=== PATIENT | male | born 1940 | race Caucasian/White ===

== ENCOUNTER 2016-08-24 16:37 | Emergency (ER) | payer MEDICARE ==
[2016-08-24 17:02] VITALS: BP 126/87
--- NOTE | 2016-08-24 17:40 | UC ---
Laceration HPI - HPI Summary HPI Summary: 76 yo M cut his left lower leg on the corner of a car door approx 3pm. Pt is on ASA and warfarin and is type I DM. - History Of Current Complaint Chief Complaint: UCLowerExtremity Stated Complaint: LEG LAC Time Seen by Provider: 08/24/16 17:34 Hx Obtained From: Patient, Family/Loading Checker - Laceration Location: Calf - left Mechanism Of Injury: Sharp Trauma Onset/Duration: Sudden Onset, Lasting Hours, Still Present Severity: Moderate Pain Intensity: 2 Pain Scale Used: 0-10 Numeric Aggravating Factors: Nothing - Allergies/Home Medications Allergies/Adverse Reactions: Allergies Allergy/AdvReac Type Severity Reaction Status Date / Time Amiodarone Allergy Unknown Verified 08/24/16 17:02 Reaction Details PMH/Surg Hx/FS Hx/Imm Hx Previously Healthy: No Endocrine History: Diabetes - type I on pump Cardiovascular History: Cardiac Disease, Pacemaker/ICD Other History Of: Anticoagulant Therapy - Surgical History Surgical History: Yes Surgery Procedure, Year, and Place: depuytren's fasciitis defibulator-approx 5 yrs ago. cardiatic=bypass. =5 yrs ago. aortic valve placement=may 2015. ICD. 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 - Family History Known Family History: Positive: Cardiac Disease Family History: FHx of CVA - Father - Social History Occupation: Retired Lives: With Family Alcohol Use: Daily Alcohol Amount: 1/2 GLASS WINE Substance Use Type: None Smoking Status (MU): Former Smoker When Did the Patient Quit Smoking/Using Tobacco: 45 YRS AGO Review of Systems Constitutional: Negative Skin: Other - laceration Eyes: Negative ENT: Negative Respiratory: Negative Cardiovascular: Negative Gastrointestinal: Negative Genitourinary: Negative Motor: Negative Neurovascular: Negative Musculoskeletal: Negative Neurological: Negative Psychological: Negative All Other Systems Reviewed And Are Negative: Yes Physical Exam Triage Information Reviewed: Yes Appearance: Well-Appearing, Well-Nourished, Pain Distress Vital Signs: Initial Vital Signs Temp 99 F 08/24/16 16:50 Pulse 98 08/24/16 16:50 Resp 22 08/24/16 16:50 BP 126/87 08/24/16 16:50 Pulse Ox 99 08/24/16 16:50 Vital Signs Reviewed: Yes ENT: Positive: Normal ENT inspection Neck: Positive: Supple Respiratory: Positive: No respiratory distress Cardiovascular: Positive: RRR, Pulses Normal, Brisk Capillary Refill Musculoskeletal: Positive: Strength Intact, ROM Intact Neurological: Positive: Alert, Muscle Tone Normal Psychological Exam: Normal Skin: Positive: Other - flap laceration to left lat lower leg, 3cm Laceration Repair - Laceration Repair 1 Description: Linear - flap Laceration Size After Repair: Length (cm) - 3, Width (mm) - 2, Depth (mm) - 2 Modified For Repair: No Type Injection: Local Anesthesia Used: 2.0% Lido Cleansing Completed Via Routine Prep: Yes Irrigation With Pressure Irrigation Device: Yes Closure Material: Sutures - 12 Closure Method: Single Layer Suture Of: Skin Suture Type: Nylon - 4-0 Laceration Course/Dx - Differential Dx - Laceration/Wound Differental Diagnoses: Laceration, Tendon Laceration Provider Diagnoses: flap laceration left lower leg. type I DM Discharge - Discharge Plan Condition: Stable Disposition: HOME Prescriptions: Cephalexin CAP* [Keflex 500 CAP*] 500 mg PO QID #40 cap Patient Education Materials: Care For Your Stitches (ED), Laceration (ED) Referrals: Liana Loza MD [Primary Care Provider] - Additional Instructions: Change the bandage daily. Use a telfa bandage and a small amount of antibiotic ointment. Keep the leg elevated and dry. You may shower, though, and wash with soap and water. No need for stronger cleansing agents. Watch for infection and seek medical attention if you have any concern about the wound. Wear an jane bandage over the dressing for two days, even at night, to act as a pressure dressing. Have your stitches removed in 10-14 days. Return to urgent care if any new or worsening symptoms.
[2016-08-24] MEDS ORDERED: Lidocaine 2% PF * 5 ML VIAL INJ ONE ×2 (17:44→18:04)
== END 2016-08-24 19:00 | disposition home or self-care (01) ==
LOC: UCCORT 16:37
DX: S81.812A Laceration without foreign body, left lower leg, initial encounter (principal); W22.8XXA Striking against or struck by other objects, initial encounter; Y92.9 Unspecified place or not applicable; E10.9 Type 1 diabetes mellitus without complications; Z79.82 Long term (current) use of aspirin; Z79.02 Long term (current) use of antithrombotics/antiplatelets; Z87.891 Personal history of nicotine dependence
CPT/HCPCS: 12002; 99212; G0463

== ENCOUNTER 2016-09-08 09:08 | Emergency (ER) | payer MEDICARE ==
[2016-09-08 09:33] VITALS: BP 101/63
--- NOTE | 2016-09-08 09:50 | UC ---
HPI Wound/Suture Re-check - HPI Summary HPI Summary: suture removal left lower leg laceration here for suture removal . sutures were placed here at the urgent care 15 days ago has no complaint , the wound is healing well . no pain, no redness, no discharge - History Of Current Complaint Chief Complaint: UCSkin Stated Complaint: SUTURE REMOVAL Time Seen by Provider: 09/08/16 09:28 Hx Obtained From: Patient Onset/Duration: Sudden Onset, Lasting Days - 15, Still Present Severity: Moderate - Allergies/Home Medications Allergies/Adverse Reactions: Allergies Allergy/AdvReac Type Severity Reaction Status Date / Time Amiodarone Allergy Unknown Verified 09/08/16 09:26 Reaction Details PMH/Surg Hx/FS Hx/Imm Hx Previously Healthy: Yes Endocrine History: Diabetes Cardiovascular History: Cardiac Disease, Myocardial Infarction Other History Of: Anticoagulant Therapy - Surgical History Surgical History: Yes Surgery Procedure, Year, and Place: depuytren's fasciitis defibulator-approx 5 yrs ago. cardiatic=bypass. =5 yrs ago. aortic valve placement=may 2015. ICD. PACE [employer] - Family History Known Family History: Positive: Cardiac Disease, Hypertension, Diabetes Family History: FHx of CVA - Father - Social History Alcohol Use: Daily Alcohol Amount: 1/2 GLASS WINE Substance Use Type: None Smoking Status (MU): Former Smoker When Did the Patient Quit Smoking/Using Tobacco: 45 YRS AGO - Immunization History Most Recent Tetanus Shot: UNKNOWN Review of Systems Constitutional: Negative Skin: Negative Eyes: Negative ENT: Negative Respiratory: Negative All Other Systems Reviewed And Are Negative: Yes Physical Exam Triage Information Reviewed: Yes Appearance: Well-Appearing, No Pain Distress, Well-Nourished Vital Signs: Initial Vital Signs Temp 98.2 F 09/08/16 09:27 Pulse 87 09/08/16 09:27 Resp 18 09/08/16 09:27 BP 101/63 09/08/16 09:27 Pulse Ox 99 09/08/16 09:27 Vital Signs Reviewed: Yes Eyes: Positive: Conjunctiva Clear ENT: Positive: Normal ENT inspection, Hearing grossly normal, Pharynx normal Neck: Positive: Supple, Nontender, No Lymphadenopathy Respiratory: Positive: Chest non-tender, Lungs clear, Normal breath sounds Cardiovascular: Positive: RRR, No Murmur, Pulses Normal Skin: Positive: Other - + 2 cm laceratio left britton area, suture are intact x 8 , laceration is healing well, + granulation tissue, no discharge, mild erythema , mild swelling and tenderness sutures were removed, steri stips were placed Course/Dx - Differential Dx - Laceration/Wound Provider Diagnoses: suture removal left lower ext. Discharge - Discharge Plan Condition: Stable Disposition: HOME Patient Education Materials: Stitches Removal (ED) Referrals: Liana Loza MD [Primary Care Provider] - If Needed
== END 2016-09-08 09:53 | disposition home or self-care (01) ==
LOC: UCCORT 09:08
DX: Z48.02 Encounter for removal of sutures (principal)

== ENCOUNTER 2017-02-03 14:46 | Emergency (ER) | payer MEDICARE ==
--- NOTE | 2017-02-03 14:55 | UC ---
UC General HPI - HPI Summary HPI Summary: Pt presents with his presenting with blood in his stool, first noticed today. He tells me that 10 days ago he underwent a routine colonoscopy. The follow 4 days he was constipated with hardly any BM. He then took miralax for 2 days and had a significant bowel movement on 02/01. He presents today because this morning he had a loose bowel movement with blood in his stool. Since his first BM today, he has had 3 more BMs - all with darkened stool and nikki red blood. He has brought a sample of his most recent BM - which is loosely formed - there is obvious blood and a darkness to his stools. He is also complaining of some lightheadedness. He is on Lovenox, for an unknown condition, for the last 3 weeks. He is also on Coumadin, which he began last night for the first time since his colonoscopy. He denies fever, chills, SOB, chest pain, abdominal pain, N/V, or recent illness. His manual blood pressure taken today was 90/40 left arm. - History of Current Complaint Chief Complaint: UCGI Stated Complaint: PERSONAL Time Seen by Provider: 02/03/17 14:52 Hx Obtained From: Patient Onset/Duration: Sudden Onset Onset Severity: Mild Current Severity: Mild Associated Signs & Symptoms: Positive: Anticoagulation Therapy, Dizziness - Allergy/Home Medications Allergies/Adverse Reactions: Allergies Allergy/AdvReac Type Severity Reaction Status Date / Time Amiodarone Allergy Unknown Verified 09/08/16 09:26 Reaction Details Home Medications: Home Medications Enoxaparin Sodium [Lovenox] 80 mg SC 02/03/17 [History] Ursodiol 500 mg PO BID 02/03/17 [History Confirmed 02/03/17] PMH/Surg Hx/FS Hx/Imm Hx Endocrine History: Dyslipidemia Cardiovascular History: Cardiac Disease, Hypertension, Pacemaker/ICD, Congestive Heart Failure Other History Of: Anticoagulant Therapy - Surgical History Surgical History: Yes Surgery Procedure, Year, and Place: depuytren's fasciitis defibulator-approx 5 yrs ago. cardiatic=bypass. =5 yrs ago. aortic valve placement=may 2015. ICD. [employer] - Family History Known Family History: Positive: Cardiac Disease, Hypertension, Diabetes Family History: FHx of CVA - Father - Social History Alcohol Use: Daily Alcohol Amount: 1/2 GLASS WINE Substance Use Type: None Smoking Status (MU): Former Smoker When Did the Patient Quit Smoking/Using Tobacco: 45 YRS AGO - Immunization History Most Recent Tetanus Shot: UNKNOWN Review of Systems Constitutional: Negative Skin: Negative Eyes: Negative ENT: Negative Respiratory: Negative Cardiovascular: Negative Gastrointestinal: Other - Blood in stool Genitourinary: Negative Motor: Negative Neurovascular: Negative Musculoskeletal: Negative Neurological: Other - Lightheadedness Psychological: Negative All Other Systems Reviewed And Are Negative: Yes Physical Exam Triage Information Reviewed: Yes Appearance: Well-Appearing, Well-Nourished Vital Signs Reviewed: Yes Eyes: Positive: Conjunctiva Clear Neck: Positive: Supple, Nontender, No Lymphadenopathy Respiratory: Positive: Chest non-tender, Lungs clear, Normal breath sounds, No respiratory distress, No accessory muscle use Cardiovascular: Positive: RRR, Pulses Normal, Brisk Capillary Refill Abdomen Description: Positive: Soft, Other: - TTP periumbilical. Negative: Bruit, CVA Tenderness (R), CVA Tenderness (L), Distended, Guarding, Peritoneal Signs Bowel Sounds: Positive: Present Musculoskeletal: Positive: Strength Intact, ROM Intact, No Edema Neurological: Positive: Alert Psychological: Positive: Age Appropriate Behavior Skin: Positive: Other - No bruising. No johnson brannon sign. Negative: rashes Course/Dx - Course Course Of Treatment: Pt was advised to seek evaluation in the ED. It was strongly recommended that he take an ambulance. Risks were discussed including but not limited to LOC, cardiac abnormalities, increased bleeding, and . Pt and his declined ambulance and wanted to go by personal vehicle. His is driving. - Differential Dx - Multi-Symptom Differential Diagnoses: Other - GI bleed Provider Diagnoses: GI bleed lower. Hypotension. Lightheadedness. Aortic valve replacement Discharge - Discharge Plan Condition: Stable Disposition: HOME Referrals: Liana Loza MD [Primary Care Provider] - Additional Instructions: Pt advised to go to the ED for further evaluation. They tell me that his will drive him by personal vehicle, as they declined ambulance.
[2017-02-03 15:10] VITALS: BP 90/50
== END 2017-02-03 15:39 | disposition home or self-care (01) ==
LOC: UCEAST 14:46
DX: K92.2 Gastrointestinal hemorrhage, unspecified (principal); I95.9 Hypotension, unspecified; R42 Dizziness and giddiness; Z95.2 Presence of prosthetic heart valve; Z79.01 Long term (current) use of anticoagulants; I50.9 Heart failure, unspecified; Z95.810 Presence of automatic (implantable) cardiac defibrillator; Z72.89 Other problems related to lifestyle; Z87.891 Personal history of nicotine dependence
CPT/HCPCS: 99212; G0463

== ENCOUNTER 2017-09-24 12:28 | Inpatient (IN) | payer MEDICARE ==
--- OUTSIDE RECORDS SUMMARY | 2017-09-24 13:16 | XMS REPORT ---
:1940 External Reference #:[id number] Author Organization [facility] Address [address] [place] [address] [place] [address] Phone [phone] Care Team Providers Name Role Phone Barry Snowden MD Care Team Information Alarm Investigator Unavailable Liana Loza MD Primary Care Physician Unavailable Payers Type Date Identification Numbers Payment Provider Subscriber Medicare Primary Policy Number: [id number] Medicare Alan Hollis PayID: [id number] [address] [place] [address] [facility] Part [facility] Policy Number: [id number] [facility] Alan Hollis PayID: [id number] [address] [place] [address] Problems Date Description Provider Status Onset: 01/17/2013 Primary cardiomyopathy Steven Frye M.D. Active Onset: 01/17/2013 Paroxysmal ventricular tachycardia Steven Frye M.D. Active Onset: 01/17/2013 Chronic ischemic heart disease Steven Frye M.D. 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 Active Onset: 09/18/2016 Dizziness and giddiness Ron Messer M.D. Active Family History Date Family Member(s) Problem(s) Comments Father Stroke Father due to Stroke () Mother Heart Disease Mother due to [place] () Siblings 1 Brother w/celiac disease Social History Type Date Description Comments Marital Status Lives With Occupation Retired Cigarette Use Former Cigarette Smoker Cigarette Use Former Cigarette Smoker 3 smoked 2-3 PPD starting at [employer] age 13 and quit in the s. Cigars Never Smoked Cigars Pipe Never Smoked A Pipe Smokeless Tobacco Never Used Smokeless Tobacco ETOH Use Wine 1/2 glass per day Smoking Patient is a former smoker Recreational Drug Use Denies Drug Use Daily Caffeine consumes chocolate occasionally Daily Caffeine Coffee ocassionally Exercise Type/Frequency Exercises sporadically reg daily ROM Allergies, Adverse Reactions, Alerts Date Description Reaction Status Severity Comments 06/01/2015 Amiodarone "caused scarring on lungs" active 01/17/2013 NKDA inactive Medications Medication Date Status Form Strength Qnty SIG Indications Ordering Provider Magnesium Oxide 08/20/ Active Tablets 400mg 2 by mouth Steven Cao 2017 every day Meek Frye Torsemide 05/12/ Active Tablets 20mg 60tab 1 tab by I50.43 Steven Cao 2016 s mouth every Brand, other day ( M.DDesmond started taking recent since discharge 06/26/17) Coreg 03/15/ Active Tablets 3.125mg 180ta 1 by mouth Steven Cao 2015 bs bid(on hold Brand, per Ke) Meek Amoxicillin 08/02/ Active Capsules 500mg 8caps 4 tablets 1 Steven Cao 2015 hour before Brand, dental work Meek Humalog 10/16/ Active Solution 100Unit/M insulin Steven Cao 2014 Cartridge L pump Meek Frye Lipitor 12/21/ Active Tablets 40mg 90tab 1 tab by Steven Cao 2011 s mouth every Brand, day(on M.D. hold) Klor-Con M20 00// Active Tablets ER 20Meq 90tab 1 by mouth Steven Cao 0000 s every Brand, day(on M.D. hold) Aspirin 00/ Active Tablets DR 81mg 30tab 1 po qd Unknown 0000 s dinner (on hold) Co Q-10 With 00// Active 1 po qd Unknown Red Rice Yeast 0000 dinner(on hold) Flax Seed 00/ Active Capsules 1200mg 1 po qd Unknown 0000 dinner (on hold) Centrum Silver 00/ Active Tablets 30tab 1 po qd(on Unknown 0000 s hold) B-100 Complex 00/00/ Active Tablets 1 po qd Unknown 0000 dinner (on hold) Lisinopril / Active Tablets 2.5mg 1 by mouth Unknown 0000 every day Am ( taken since 06/26/17 [facility] ) Gabapentin / Active Capsules 100mg take 1 by Unknown 0000 mouth daily Am ( taken since 06/26/17 [facility]) Ferrousul / Active Tablets 325(65Fe) 1 tablet po Unknown 0000 mg tid ( taken since 06/26/17 discharge [facility]) Protonix / Active Tablets DR 40mg 1 by mouth Unknown 0000 every day Am ( Taken since 06/26/17 [facility]) Colace / Active Capsules 100mg 1 tab by Unknown 0000 mouth two times a day ( taken as needed since 06/26/17 [facility]) Trazodone HCL / Active Tablets 50mg 1 tablet at Unknown 0000 bedtime ( taken since 06/26/17 [facility]) Melatonin ER / Active Tablets ER 3mg 1 tablet at Unknown 0000 night 1 to 2 hours before bedtime as needed ( taken since 06/26/17 [facility]) Tylenol / Active Capsules 325mg 2 tablets Unknown 0000 every 4 hours as needed for pain ( taken since 06/26/17 [facility] ) Furosemide 02/27/ Hx Tablets 20mg 60tab 2 tabs per Steven Cao 2015 - s day Brand, 05/12/ M.D. 2016 Magnesium 07/15/ Hx Tablets 200mg 1 by mouth Unknown Citrate 2015 - once a day 08/19/ [employer]fe[employer] 2017 Amiodarone HCL 01/07/ Hx Tablets 200mg 45tab 1/2 tab by Steven Cao 2012 - s mouth every Brand, M.DDesmond 2015 Carvedilol 11/05/ Hx Tablets 6.25mg 180ta 1 by mouth Steven Cao 2013 - bs twice a day Brand, 01/15/ M.D. 2015 Pradaxa 09/30/ Hx Capsules 150mg 180ca 1 cap by Steven Cao 2012 - ps mouth twice Brand, 01/28/ a day M.D. 2013 Lisinopril 05/14/ Hx Tablets 5mg 90tab 1 tab by Steven Cao 2012 - s mouth every Brand, 04/10/ day M.D. 2016 Humalog Kwikpen // Hx Solution 100Unit/M 6unit sliding Unknown 0000 - L s scale 2014 Levemir Flexpen / Hx Solution 100Unit/M 30uni 12 units in Unknown 0000 - L ts am 16 units 10/15/ in evening 2014 Novolog / Hx as directed Unknown 0000 - 2015 Carvedilol / Hx Tablets 3.125mg 180ta 1 by mouth Steven Cao 0000 - bs twice a day Brand, (pt is no M.DDesmond 2015 longer taking) Clopidogrel / Hx Tablets 75mg 1 by mouth Unknown Bisulfate 0000 - every day 2015 Pantoprazole / Hx Tablets DR 40mg 1 by mouth Unknown Sodium 0000 - every day 06/17/ for 30 days 2015 Warfarin Sodium / Hx Tablets 2.5mg 2.5mg 4X [place] 0000 - week and , 08/19/ 5mg Liana 2017 (2-2.5mg) MD Donnie 3x a week (monitored Via Coumadin lab [facility]) Polyethylene / Hx Powder 3350NF 1 scoop in [place] Glycol 3350 0000 - 8 oz water , 05/15/ once daily Liana 2016 MD Donnie Enoxaparin / Hx Solution 100mg/ml 1 injection Unknown Sodium 0000 - every 12 05/10/ hours ( 2016 started 05/03/16) Hydrocodone-Romeo / Hx Tablets 5-325mg [place] taminophen 0000 - , 05/10/ Liana 2016 MD Donnie Dutasteride / Hx Capsules 0.5mg 1 cap po Unknown 0000 - daily 2016 Tamsulosin HCL / Hx Capsules 0.4mg 1 cap po Unknown 0000 - daily 2017 Docusate Sodium 00/00/ Hx 1 po bid, Unknown 0000 - not sure 05/10/ dose 2016 Acetaminophen / Hx Tablets 325mg 1-2 tabs 3x Unknown 0000 - a day as 2016 Cephalexin / Hx Capsules 500mg 1 by mouth Unknown 0000 - three times a day for 7 2016 days Ursodiol / Hx Tablets 500mg Take One Unknown 0000 - Tablet By 08/19/ Mouth Twice 2017 A Day Medications Administered in Office Medication Date Status Form Strength Qnty SIG Indications Ordering Provider Inj, Administered Injection Steven Cao Regadenoson, 015 Meek Frye 0.1 MG Technetium TC Administered Injection Steven Cao 99M 015 Meek Frye Tetrofosmin, Per Unit Dose Up To 40 Millicuries Vital Signs Date Vital Result Comment 08/29/2017 Height 72 inches 6'0" Weight 185.00 lb with 6 lbs Lvad controller ( w/o clothes 174lbs) Heart Rate 83 /min BP Systolic Sitting 72 mmHg heard by doopler R O2 % BldC Oximetry 97 % at room air BMI (Body Mass Index) 25.1 kg/m2 11/24/2016 Height 72 inches 6'0" Weight 188.00 lb with shoes Heart Rate 80 /min BP Systolic Sitting 90 mmHg Lue reg cuff BP Diastolic Sitting 60 mmHg Lue reg cuff BP Systolic Standing 92 mmHg Lue reg cuff BP Diastolic Standing 64 mmHg Lue reg cuff Respiratory Rate 17 /min BMI (Body Mass Index) 25.5 kg/m2 Ejection Fraction <20% date 10/10/16 ECHO 11/21/2016 Height 72 inches 6'0" Weight 189.00 lb w/ shoes Heart Rate 72 /min Reg BP Systolic Sitting 100 mmHg Rue, reg cuff BP Diastolic Sitting 70 mmHg Rue, reg cuff Respiratory Rate 16 /min O2 % BldC Oximetry 96 % on Ra BMI (Body Mass Index) 25.6 kg/m2 10/17/2016 Height 72 inches 6'0" Weight 197.00 lb Heart Rate 72 /min BP Systolic Sitting 104 mmHg BP Diastolic Sitting 64 mmHg Respiratory Rate 14 /min O2 % BldC Oximetry 98 % BMI (Body Mass Index) 26.7 kg/m2 10/11/2016 Height 72 inches 6'0" Weight 195.00 lb with shoes Heart Rate 96 /min BP Systolic Sitting 90 mmHg Lue reg cuff BP Diastolic Sitting 70 mmHg Lue reg cuff BP Systolic Standing 108 mmHg Lue reg cuff BP Diastolic Standing 70 mmHg Lue reg cuff Respiratory Rate 17 /min BMI (Body Mass Index) 26.4 kg/m2 Ejection Fraction <20% date 10/10/16 ECHO 10/03/2016 Height 72 inches 6'0" Weight 198.00 lb w/ shoes Heart Rate 78 /min reg BP Systolic Sitting 100 mmHg Rue, reg cuff BP Diastolic Sitting 64 mmHg Rue, reg cuff Respiratory Rate 16 /min O2 % BldC Oximetry 98 % on Ra BMI (Body Mass Index) 26.9 kg/m2 09/18/2016 Height 72 inches 6'0" Weight 194.00 lb Heart Rate 96 /min BP Systolic Sitting 112 mmHg BP Diastolic Sitting 66 mmHg Respiratory Rate 20 /min Pain Level 0 BMI (Body Mass Index) 26.3 kg/m2 07/12/2016 Height 72 inches 6'0" Weight 184.00 lb with shoes Heart Rate 84 /min BP Systolic Sitting 108 mmHg Rue reg cuff BP Diastolic Sitting 58 mmHg Rue reg cuff BP Systolic Standing 104 mmHg Rue reg cuff BP Diastolic Standing 54 mmHg Rue reg cuff Respiratory Rate 17 /min BMI (Body Mass Index) 25.0 kg/m2 Ejection Fraction <20% 06/21/2016-echo 06/16/2016 Height 72 inches 6'0" Weight 192.00 lb with shoes Heart Rate 88 /min Ap BP Systolic Sitting 96 mmHg Lue reg cuff BP Diastolic Sitting 70 mmHg Lue reg cuff BP Systolic Standing 100 mmHg Lue reg cuff BP Diastolic Standing 66 mmHg Lue reg cuff Respiratory Rate 17 /min BMI (Body Mass Index) 26.0 kg/m2 Ejection Fraction >20% date 06/05/16 ECHO 06/15/2016 Weight 186.00 lb patient scale this morning Heart Rate 70 /min varying, see note BP Systolic Sitting 128 mmHg Rue reg cuff BP Diastolic Sitting 66 mmHg Rue reg cuff BP Systolic Standing 118 mmHg Rue reg cuff BP Diastolic Standing 76 mmHg Rue reg cuff O2 % BldC Oximetry 95 % 06/07/2016 Height 72 inches 6'0" Weight 191.00 lb no shoes Heart Rate 62 /min BP Systolic Sitting 112 mmHg Rue reg cuff BP Diastolic Sitting 64 mmHg Rue reg cuff BP Systolic Standing 110 mmHg Rue reg cuff BP Diastolic Standing 62 mmHg Rue reg cuff Respiratory Rate 18 /min BMI (Body Mass Index) 25.9 kg/m2 Ejection Fraction <20% 04/24/2016-echo 05/16/2016 Height 72 inches 6'0" Weight 196.75 lb no shoes Heart Rate 70 /min apical BP Systolic Sitting 110 mmHg Rue reg cuff BP Diastolic Sitting 68 mmHg Rue reg cuff BP Systolic Standing 100 mmHg Rue reg cuff BP Diastolic Standing 64 mmHg Rue reg cuff Respiratory Rate 16 /min BMI (Body Mass Index) 26.7 kg/m2 05/12/2016 Height 72 inches 6'0" Weight 202.00 lb Heart Rate 72 /min BP Systolic Sitting 102 mmHg Rue reg cuff BP Diastolic Sitting 64 mmHg Rue reg cuff BP Systolic Standing 98 mmHg Rue BP Diastolic Standing 70 mmHg Rue Respiratory Rate 16 /min BMI (Body Mass Index) 27.4 kg/m2 Ejection Fraction 21% 04/24/16 05/05/2016 Height 72 inches 6'0" Weight 202.00 lb with shoes Heart Rate 82 /min BP Systolic Sitting 104 mmHg Rue reg cuff BP Diastolic Sitting 72 mmHg Rue reg cuff BP Systolic Standing 102 mmHg Rue reg cuff BP Diastolic Standing 70 mmHg Rue reg cuff BMI (Body Mass Index) 27.4 kg/m2 04/14/2016 Height 72 inches 6'0" Weight 197.00 lb w/o shoes Heart Rate 76 /min BP Systolic Sitting 96 mmHg Lue, reg cuff BP Diastolic Sitting 74 mmHg Lue, reg cuff BP Systolic Standing 94 mmHg Lue BP Diastolic Standing 78 mmHg Lue Body Temperature 96.8 F tympanic O2 % BldC Oximetry 97 % on Ra BMI (Body Mass Index) 26.7 kg/m2 Ejection Fraction < 20% as of 03/06/16 echo 03/31/2016 Height 72 inches 6'0" Weight 195.00 lb Heart Rate 88 /min BP Systolic Sitting 110 mmHg BP Diastolic Sitting 70 mmHg BMI (Body Mass Index) 26.4 kg/m2 03/22/2016 Height 72 inches 6'0" Weight 195.00 lb no shoes Heart Rate 88 /min BP Systolic Sitting 102 mmHg Lue reg cuff BP Diastolic Sitting 56 mmHg Lue reg cuff BP Systolic Standing 100 mmHg Lue reg cuff BP Diastolic Standing 54 mmHg Lue reg cuff Respiratory Rate 17 /min BMI (Body Mass Index) 26.4 kg/m2 Ejection Fraction <20% 03/06/2016 03/03/2016 Height 72 inches 6'0" Weight 197.00 lb w/o shoes Heart Rate 92 /min BP Systolic Sitting 116 mmHg Lue, reg cuff BP Diastolic Sitting 56 mmHg Lue, reg cuff BP Systolic Standing 106 mmHg Lue BP Diastolic Standing 54 mmHg Lue Respiratory Rate 16 /min O2 % BldC Oximetry 98 % on Ra BMI (Body Mass Index) 26.7 kg/m2 Ejection Fraction 20-25% as of 10/01/15 echo 11/05/2015 Height 72 inches 6'0" Weight 188.00 lb per pt Heart Rate 73 /min BP Systolic Sitting 110 mmHg BP Diastolic Sitting 60 mmHg Respiratory Rate 14 /min O2 % BldC Oximetry 97 % BMI (Body Mass Index) 25.5 kg/m2 10/08/2015 Height 72 inches 6'0" Weight 191.00 lb with shoes Heart Rate 82 /min BP Systolic Sitting 110 mmHg LA lrg cuff BP Diastolic Sitting 74 mmHg LA lrg cuff BP Systolic Standing 110 mmHg LA lrg cuff BP Diastolic Standing 68 mmHg LA lrg cuff BMI (Body Mass Index) 25.9 kg/m2 Ejection Fraction 20% - 25% echo 10/01/15 08/31/2015 Height 72 inches 6'0" Weight 194.00 lb Heart Rate 77 /min BP Systolic 110 mmHg BP Diastolic 64 mmHg Respiratory Rate 14 /min O2 % BldC Oximetry 99 % BMI (Body Mass Index) 26.3 kg/m2 07/19/2015 Height 72 inches 6'0" Weight 194.00 lb Heart Rate 75 /min BP Systolic Sitting 110 mmHg BP Diastolic Sitting 60 mmHg Respiratory Rate 16 /min O2 % BldC Oximetry 98 % BMI (Body Mass Index) 26.3 kg/m2 07/02/2015 Height 72 inches 6'0" Weight 194.00 lb Heart Rate 76 /min BP Systolic Sitting 108 mmHg LA reg cuff BP Diastolic Sitting 64 mmHg LA reg cuff BP Systolic Standing 100 mmHg LA BP Diastolic Standing 58 mmHg LA Respiratory Rate 16 /min BMI (Body Mass Index) 26.3 kg/m2 Ejection Fraction <20% 06/29/15 06/01/2015 Height 72 inches 6'0" Weight 201.00 lb w/ sneakers Heart Rate 76 /min reg BP Systolic Sitting 116 mmHg Rue, reg cuff BP Diastolic Sitting 56 mmHg Rue, reg cuff BP Systolic Standing 110 mmHg Rue BP Diastolic Standing 60 mmHg Rue Respiratory Rate 16 /min BMI (Body Mass Index) 27.3 kg/m2 Ejection Fraction 16% As of 05/07/15 echo 04/20/2015 Height 72 inches 6'0" Weight 199.00 lb with shoes Heart Rate 70 /min BP Systolic Sitting 108 mmHg left arm, reg cuff BP Diastolic Sitting 62 mmHg left arm, reg cuff BP Systolic Standing 98 mmHg left arm, reg cuff BP Diastolic Standing 62 mmHg left arm, reg cuff Respiratory Rate 16 /min BMI (Body Mass Index) 27.0 kg/m2 Ejection Fraction 20-25% 03/25/15 04/08/2015 Height 72 inches 6'0" Weight 200.00 lb w/o shoes Heart Rate 80 /min reg BP Systolic Sitting 108 mmHg Rue, reg cuff BP Diastolic Sitting 66 mmHg Rue, reg cuff BP Systolic Standing 106 mmHg Rue BP Diastolic Standing 70 mmHg Rue Respiratory Rate 16 /min BMI (Body Mass Index) 27.1 kg/m2 Ejection Fraction 20-25% as of 03/25/15 echo 03/05/2015 Height 72 inches 6'0" Weight 203.00 lb without shoes Heart Rate 74 /min BP Systolic Sitting 108 mmHg reg cuff, L arm BP Diastolic Sitting 60 mmHg reg cuff, L arm BP Systolic Standing 114 mmHg BP Diastolic Standing 70 mmHg Respiratory Rate 18 /min BMI (Body Mass Index) 27.5 kg/m2 Ejection Fraction 25-30% 10/29/14 10/16/2014 Height 72 inches 6'0" Weight 192.00 lb with shoes Heart Rate 68 /min BP Systolic Sitting 98 mmHg Ra, reg cuff BP Diastolic Sitting 64 mmHg Ra, reg cuff BP Systolic Standing 94 mmHg Ra BP Diastolic Standing 64 mmHg Ra Respiratory Rate 14 /min BMI (Body Mass Index) 26.0 kg/m2 Ejection Fraction 30-35% 10/25/2011 01/30/2014 Height 72 inches 6'0" Weight 203.00 lb with shoes Heart Rate 66 /min regular BP Systolic Sitting 118 mmHg left arm reg cuff BP Diastolic Sitting 64 mmHg left arm reg cuff BP Systolic Standing 108 mmHg left arm reg cuff BP Diastolic Standing 62 mmHg left arm reg cuff Respiratory Rate 18 /min BMI (Body Mass Index) 27.5 kg/m2 01/17/2013 Height 72 inches 6'0" Weight 196.00 lb Heart Rate 68 /min BP Systolic Sitting 104 mmHg Ra reg cuff BP Diastolic Sitting 68 mmHg Ra reg cuff BP Systolic Standing 98 mmHg Ra BP Diastolic Standing 60 mmHg Ra Respiratory Rate 16 /min BMI (Body Mass Index) 26.6 kg/m2 Results Test Date Test Result H/L Range Note Inr/Protime 06/13/2016 Inr 2.45 High 0.89-1.11 Basic Metabolic Panel 03/31/2016 Sodium 134 mmol/L 133-145 Potassium 5.5 mmol/L High 3.5-5.0 Chloride 98 mmol/L Low 101-111 Co2 Carbon Dioxide 30 mmol/L 22-32 Anion Gap 6 mmol/L 2-11 Glucose 168 mg/dL High 70-100 Blood Urea Nitrogen 32 mg/dL High 6-24 Creatinine 1.20 mg/dL High 0.67-1.17 BUN/Creatinine Ratio 26.7 High 8-20 Calcium 9.4 mg/dL 8.6-10.3 Egfr Non- 59.0 >60 Egfr 75.9 >60 1 CBC Auto Diff 03/01/2016 White Blood Count 6.6 10^3/uL 3.5-10.8 Red Blood Count 5.11 10^6/uL 4.0-5.4 Hemoglobin 15.4 g/dL 14.0-18.0 Hematocrit 48 % 42-52 Mean Corpuscular Volume 94 fL 80-94 Mean Corpuscular Hemoglobin 30 pg 27-31 Mean Corpuscular HGB Conc 32 g/dL 31-36 Red Cell Distribution Width 15 % 10.5-15 Platelet Count 124 10^3/uL Low 150-450 Mean Platelet Volume 9 um3 7.4-10.4 Abs Neutrophils 4.1 10^3/uL 1.5-7.7 Abs Lymphocytes 1.5 10^3/uL 1.0-4.8 Abs Monocytes 0.7 10^3/uL 0-0.8 Abs Eosinophils 0.3 10^3/uL 0-0.6 Abs Basophils 0.1 10^3/uL 0-0.2 Abs Nucleated RBC 0.01 10^3/uL Granulocyte % 61.9 % 38-83 Lymphocyte % 22.1 % Low 25-47 Monocyte % 10.2 % High 1-9 Eosinophil % 4.5 % 0-6 Basophil % 1.3 % 0-2 Nucleated Red Blood Cells % 0.1 Basic Metabolic Panel 03/01/2016 Sodium 136 mmol/L 133-145 Potassium 4.5 mmol/L 3.5-5.0 Chloride 100 mmol/L Low 101-111 Co2 Carbon Dioxide 31 mmol/L 22-32 Anion Gap 5 mmol/L 2-11 Glucose 98 mg/dL 70-100 Blood Urea Nitrogen 24 mg/dL 6-24 Creatinine 1.10 mg/dL 0.67-1.17 BUN/Creatinine Ratio 21.8 High 8-20 Calcium 8.9 mg/dL 8.6-10.3 Egfr Non- 65.3 >60 Egfr 83.9 >60 2 Laboratory test finding 03/01/2016 B-Type Natriuretic 1420 pg/mL High 3 Peptide BNP Laboratory test finding 07/30/2015 PSA Screening 3.804 ng/mL 0-4.000 4 Comp Metabolic Panel 07/30/2015 Sodium 133 mmol/L 133-145 Potassium 5.2 mmol/L High 3.5-5.0 Chloride 99 mmol/L Low 101-111 Co2 Carbon Dioxide 29 mmol/L 22-32 Anion Gap 5 mmol/L 2-11 Glucose 219 mg/dL High 70-100 Blood Urea Nitrogen 25 mg/dL High 6-24 Creatinine 1.18 mg/dL High 0.67-1.17 BUN/Creatinine Ratio 21.2 High 8-20 Calcium 9.1 mg/dL 8.6-10.3 Total Protein 8.0 g/dL 6.4-8.9 Albumin 3.6 g/dL 3.2-5.2 Globulin 4.4 g/dL High 2-4 Albumin/Globulin Ratio 0.8 Low 1-3 Total Bilirubin 1.00 mg/dL 0.2-1.0 Alkaline Phosphatase 166 U/L High 34-104 Alt 24 U/L 7-52 Ast 29 U/L 13-39 Egfr Non- 60.3 >60 Egfr 77.6 >60 5 CBC No Diff 07/30/2015 White Blood Count 7.1 10^3/uL 3.5-10.8 Red Blood Count 4.75 10^6/uL 4.0-5.4 Hemoglobin 14.6 g/dL 14.0-18.0 Hematocrit 45 % 42-52 Mean Corpuscular Volume 95 fL High 80-94 Mean Corpuscular Hemoglobin 31 pg 27-31 Mean Corpuscular HGB Conc 32 g/dL 31-36 Red Cell Distribution Width 15 % 10.5-15 Platelet Count 182 10^3/uL 150-450 Mean Platelet Volume 9 um3 7.4-10.4 Anca Panel For Vasculitis 07/19/2015 Myeloperoxidase AB <0.2 U 6 Proteinase 3 AB <0.2 U 7 Scleroderma AB (SCL70) 07/19/2015 Scleroderma Ab <0.2 U 8 Laboratory test finding 07/19/2015 Anti Ssa/Ro 0.2 U 9 Anti SSB LA <0.2 U 10 Rheumatoid Factor <15 IU/mL <15 11 Basic Metabolic Panel 04/09/2015 Sodium 133 mmol/L 133-145 Potassium 4.8 mmol/L 3.5-5.0 Chloride 98 mmol/L Low 101-111 Co2 Carbon Dioxide 31 mmol/L 22-32 Anion Gap 4 mmol/L 2-11 Glucose 224 mg/dL High 70-100 Blood Urea Nitrogen 22 mg/dL 6-24 Creatinine 1.17 mg/dL 0.67-1.17 BUN/Creatinine Ratio 18.8 8-20 Calcium 9.2 mg/dL 8.6-10.3 Egfr Non- 60.9 >60 Egfr 78.4 >60 12 Inr/Protime 04/09/2015 Inr 1.32 High 0.89-1.11 CBC Auto Diff 04/09/2015 White Blood Count 8.1 10^3/uL 3.5-10.8 Red Blood Count 4.89 10^6/uL 4.0-5.4 Hemoglobin 15.4 g/dL 14.0-18.0 Hematocrit 48 % 42-52 Mean Corpuscular Volume 97 fL High 80-94 Mean Corpuscular Hemoglobin 31 pg 27-31 Mean Corpuscular HGB Conc 32 g/dL 31-36 Red Cell Distribution Width 13 % 10.5-15 Platelet Count 190 10^3/uL 150-450 Mean Platelet Volume 9 um3 7.4-10.4 Abs Neutrophils 5.0 10^3/uL 1.5-7.7 Abs Lymphocytes 1.3 10^3/uL 1.0-4.8 Abs Monocytes 0.6 10^3/uL 0-0.8 Abs Eosinophils 1.0 10^3/uL High 0-0.6 Abs Basophils 0.2 10^3/uL 0-0.2 Abs Nucleated RBC 0.01 10^3/uL Granulocyte % 61.6 % 38-83 Lymphocyte % 16.0 % Low 25-47 Monocyte % 7.7 % 1-9 Eosinophil % 12.8 % High 0-6 Basophil % 1.9 % 0-2 Nucleated Red Blood Cells % 0.1 Pre Cath Panel 04/09/2015 Partial Thrombo Time PTT 34.7 seconds 26.0- 36.3 Thyroid Panel 11/25/2014 Free T4 (Free Thyroxine) 1.02 ng/mL 0.61-1.12 Thyroxine 5.84 ?g/dL Low 6.09-12.23 TSH (Thyroid Stim Horm) 2.63 ?IU/mL 0.34-5.60 Liver Function Panel 10/17/2014 Direct Bilirubin 0.20 mg/dL High 0.03- 0.18 Indirect Bilirubin 0.5 mg/dL 0.3-1.0 Urine Microalbumin Random 10/17/2014 Ur Microalbumin (mg/L) 231.0 mg/L Urine Creatinine 151.26 mg/dL Urine Microalbumin/Creatinine 152.7 ug/mg High <31 Comp Metabolic Panel 10/17/2014 Sodium 138 mmol/L 133-145 Potassium 4.5 mmol/L 3.5-5.0 Chloride 106 mmol/L 101-111 Co2 Carbon Dioxide 27 mmol/L 22-32 Anion Gap 5 mmol/L 2-11 Glucose 84 mg/dL 70-100 Blood Urea Nitrogen 18 mg/dL 6-24 Creatinine 1.05 mg/dL 0.67-1.17 BUN/Creatinine Ratio 17.1 8-20 Calcium 9.2 mg/dL 8.6-10.3 Total Protein 7.8 g/dL 6.4-8.9 Albumin 3.9 g/dL 3.2-5.2 Globulin 3.9 g/dL 2-4 Albumin/Globulin Ratio 1.0 1-3 Total Bilirubin 0.70 mg/dL 0.2-1.0 Alkaline Phosphatase 104 U/L 34-104 Alt 19 U/L 7-52 Ast 25 U/L 13-39 Egfr Non- 69.2 >60 Egfr 89.0 >60 13 Lipid Profile (Trig/Chol/HDL) 10/17/2014 Triglycerides 42 mg/dL 14 Cholesterol 141 mg/dL 15 HDL Cholesterol 71.3 mg/dL 16 LDL Cholesterol 61 mg/dL 17 CBC No Diff 04/30/2014 White Blood Count 9.1 10^3/uL 4.8-10.8 Red Blood Count 4.97 10^6/uL 4.0-5.4 Hemoglobin 15.8 g/dL 14.0-18.0 Hematocrit 47 % 42-52 Mean Corpuscular Volume 95 fL High 80-94 Mean Corpuscular Hemoglobin 32 pg High 27-31 Mean Corpuscular HGB Conc 33 g/dL 31-36 Red Cell Distribution Width 13 % 10.5-15 Platelet Count 242 10^3/uL 150-450 Mean Platelet Volume 9 um3 7.4-10.4 Laboratory test finding 04/30/2014 PSA Screening 3.395 ng/mL 0-4.000 18 T4 10.92 g/dL 6.09-12.23 Total T3 1.06 ng/mL 0.87-1.78 Free T3 3.40 pg/mL 2.5-3.9 Laboratory test finding 04/30/2014 TSH (Thyroid 0.16 IU/mL Low 0.34-5.60 Stimulating Horm) Laboratory test finding 08/26/2013 LDL Cholesterol Direct 53 mg/dL 19 Alt 19 U/L 7-52 Basic Metabolic Panel 08/26/2013 Sodium 136 mmol/L 133-145 Potassium 4.9 mmol/L 3.7-5.6 Chloride 102 mmol/L 101-111 Co2 Carbon Dioxide 30 mmol/L 22-32 Anion Gap 4 mmol/L 2-11 Glucose 214 mg/dL High 70-100 Blood Urea Nitrogen 20 mg/dL 6-24 Creatinine 1.23 mg/dL High 0.67-1.17 BUN/Creatinine Ratio 16.3 8-20 Calcium 9.5 mg/dL 8.6-10.3 Egfr Non- 57.8 >60 Egfr 74.4 >60 20 Comp Metabolic Panel 12/03/2012 Sodium 135 mmol/L 133-145 Potassium 4.7 mmol/L 3.5-5.0 Chloride 99 mmol/L Low 101-111 Co2 Carbon Dioxide 30.0 mmol/L 22-32 Anion Gap 6.0 mmol/L 2-11 Glucose 159 mg/dL High 70-100 Blood Urea Nitrogen 17 mg/dL 6-24 Creatinine 1.10 mg/dL 0.50-1.40 BUN/Creatinine Ratio 15.5 8-20 Calcium 9.3 mg/dL 8.1-9.9 Total Protein 7.4 g/dL 6.2-8.1 Albumin 3.7 g/dL 3.2-5.2 Globulin 3.7 g/dL 2-4 Albumin/Globulin Ratio 1.0 1-3 Total Bilirubin 0.8 mg/dL 0.4-1.5 Alkaline Phosphatase 103 U/L 30-110 Alt 34 U/L 14-54 Ast 32 U/L 12-42 Egfr Non- 66.0 >60 Egfr 84.9 >60 21 Lipid Profile (Trig/Chol/HDL) 12/03/2012 Triglycerides 63 mg/dL 40-200 Cholesterol 150 mg/dL Less than 200 HDL Cholesterol 75 mg/dL High 40-60 22 Cholesterol/HDL Ratio 2.0 Average 1-4.44 LDL Cholesterol 62.4 Less Than 100 23 Liver Function Panel 12/03/2012 Direct Bilirubin 0.2 mg/dL 0.1-0.5 Indirect Bilirubin 0.6 mg/dL 0.3-1.0 Urine Microalbumin Random 12/03/2012 Ur Microalbumin (mg/L) 34.0 mg/L 24 Urine Creatinine 73.3 mg/dL Urine Microalbumin/Creatinine 46.4 High Less Than 31 Laboratory test finding 07/23/2012 Free T4 1.32 ng/mL High 0.61-1.24 Total T3 0.91 ng/mL 0.5-1.7 TSH (Thyroid Stimulating Horm) 1.13 miu/mL 0.34-5.60 Liver Function Panel 07/23/2012 Total Protein 7.7 g/dL 6.2-8.1 Albumin 3.8 g/dL 3.2-5.2 Globulin 3.9 g/dL 2-4 Albumin/Globulin Ratio 1.0 1-3 Total Bilirubin 1.0 mg/dL 0.4-1.5 Direct Bilirubin 0.2 mg/dL 0.1-0.5 Indirect Bilirubin 0.8 mg/dL 0.3-1.0 Alkaline Phosphatase 101 U/L 30-110 Alt 34 U/L 14-54 Ast 36 U/L 12-42 Basic Metabolic Panel 07/23/2012 Sodium 136 mmol/L 133-145 Potassium 4.9 mmol/L 3.5-5.0 Chloride 101 mmol/L 101-111 Co2 Carbon Dioxide 26.0 mmol/L 22-32 Anion Gap 9.0 mmol/L 2-11 Glucose 248 mg/dL High 70-100 Blood Urea Nitrogen 21 mg/dL 6-24 Creatinine 1.10 mg/dL 0.50-1.40 BUN/Creatinine Ratio 19.1 8-20 Calcium 9.4 mg/dL 8.1-9.9 Egfr Non- 66.0 >60 Egfr 84.9 >60 25 1 Because ethnic data is not always readily available, this report includes an eGFR for both -Americans and non- Americans. The National Kidney Disease Education Program (NKDEP) does not endorse the use of the MDRD equation for patients that are not between the ages of 18 and 70, are , have extremes of body size, muscle mass, or nutritional status, or are non- or non-. According to the National Kidney Foundation, irrespective of diagnosis, the stage of the disease is based on the level of kidney function: Stage Description GFR(mL/min/1.73 m(2)) 1 Kidney damage with normal or decreased GFR 90 2 Kidney damage with mild decrease in GFR 60-89 3 Moderate decrease in GFR 30-59 4 Severe decrease in GFR 15-29 5 Kidney failure <15 (or dialysis) 2 Because ethnic data is not always readily available, this report includes an eGFR for both -Americans and non- Americans. The National Kidney Disease Education Program (NKDEP) does not endorse the use of the MDRD equation for patients that are not between the ages of 18 and 70, are , have extremes of body size, muscle mass, or nutritional status, or are non- or non-. According to the National Kidney Foundation, irrespective of diagnosis, the stage of the disease is based on the level of kidney function: Stage Description GFR(mL/min/1.73 m(2)) 1 Kidney damage with normal or decreased GFR 90 2 Kidney damage with mild decrease in GFR 60-89 3 Moderate decrease in GFR 30-59 4 Severe decrease in GFR 15-29 5 Kidney failure <15 (or dialysis) 3 >100 to <200 pg/mL: likely compensated congestive heart failure (CHF) 200 to 400 pg/mL: likely moderate CHF >400 pg/mL: likely moderate to severe CHF 4 Serum levels of PSA measured using the Tana [employer] DXI Hybritech immunoassay should not be interpreted as absolute evidence of the presence or absence of disease. The PSA value should be used in conjunction with other pertinent clinical diagnostic procedures. The values obtained with different assay methods or kits cannot be used interchangeably. 5 Because ethnic data is not always readily available, this report includes an eGFR for both -Americans and non- Americans. The National Kidney Disease Education Program (NKDEP) does not endorse the use of the MDRD equation for patients that are not between the ages of 18 and 70, are , have extremes of body size, muscle mass, or nutritional status, or are non- or non-. According to the National Kidney Foundation, irrespective of diagnosis, the stage of the disease is based on the level of kidney function: Stage Description GFR(mL/min/1.73 m(2)) 1 Kidney damage with normal or decreased GFR 90 2 Kidney damage with mild decrease in GFR 60-89 3 Moderate decrease in GFR 30-59 4 Severe decrease in GFR 15-29 5 Kidney failure <15 (or dialysis) 6 REFERENCE VALUE <0.4 (Negative) 7 REFERENCE VALUE <0.4 (Negative) Test Performed by: [place] [address] [employer] [place]: Brandon Trujillo II, M.D., Ph.D. 8 REFERENCE VALUE <1.0 (Negative) Test Performed by: [place] [address] [employer] [place]: Brandon Trujillo II, M.D., Ph.D. 9 REFERENCE VALUE <1.0 (Negative) Test Performed by: [place] [address] [employer] [place]: Brandon Trujillo II, M.D., Ph.D. 10 REFERENCE VALUE <1.0 (Negative) Test Performed by: [place] [address] [employer] [place]: Brandon Trujillo II, M.D., Ph.D. 11 Test Performed by: [place] [address] [employer] [place]: Brandon Trujillo II, M.D., Ph.D. 12 Because ethnic data is not always readily available, this report includes an eGFR for both -Americans and non- Americans. The National Kidney Disease Education Program (NKDEP) does not endorse the use of the MDRD equation for patients that are not between the ages of 18 and 70, are , have extremes of body size, muscle mass, or nutritional status, or are non- or non-. According to the National Kidney Foundation, irrespective of diagnosis, the stage of the disease is based on the level of kidney function: Stage Description GFR(mL/min/1.73 m(2)) 1 Kidney damage with normal or decreased GFR 90 2 Kidney damage with mild decrease in GFR 60-89 3 Moderate decrease in GFR 30-59 4 Severe decrease in GFR 15-29 5 Kidney failure <15 (or dialysis) 13 Because ethnic data is not always readily available, this report includes an eGFR for both -Americans and non- Americans. The National Kidney Disease Education Program (NKDEP) does not endorse the use of the MDRD equation for patients that are not between the ages of 18 and 70, are , have extremes of body size, muscle mass, or nutritional status, or are non- or non-. According to the National Kidney Foundation, irrespective of diagnosis, the stage of the disease is based on the level of kidney function: Stage Description GFR(mL/min/1.73 m(2)) 1 Kidney damage with normal or decreased GFR 90 2 Kidney damage with mild decrease in GFR 60-89 3 Moderate decrease in GFR 30-59 4 Severe decrease in GFR 15-29 5 Kidney failure <15 (or dialysis) 14 Desirable <150 Borderline high 150-199 High 200-499 Very High >500 15 Desirable <200 Borderline high 200-239 High >239 16 Low <40 Desirable: 40-60 High: >60 17 Desirable: <100 mg/dL Near Optimal: 100-129 mg/dL Borderline High: 130-159 mg/dL High: 160-189 mg/dL Very High: >189 mg/dL 18 Serum levels of PSA measured using the [employer] DXI Hybritech immunoassay should not be interpreted as absolute evidence of the presence or absence of disease. The PSA value should be used in conjunction with other pertinent clinical diagnostic procedures. The values obtained with different assay methods or kits cannot be used interchangeably. 19 Desirable <100 Near Optimal 100-129 Borderline high 130-159 High 160-189 Very High >189 20 Because ethnic data is not always readily available, this report includes an eGFR for both -Americans and non- Americans. The National Kidney Disease Education Program (NKDEP) does not endorse the use of the MDRD equation for patients that are not between the ages of 18 and 70, are , have extremes of body size, muscle mass, or nutritional status, or are non- or non-. According to the National Kidney Foundation, irrespective of diagnosis, the stage of the disease is based on the level of kidney function: Stage Description GFR(mL/min/1.73 m(2)) 1 Kidney damage with normal or decreased GFR 90 2 Kidney damage with mild decrease in GFR 60-89 3 Moderate decrease in GFR 30-59 4 Severe decrease in GFR 15-29 5 Kidney failure <15 (or dialysis) 21 Because ethnic data is not always readily available, this report includes an eGFR for both -Americans and non- Americans. The National Kidney Disease Education Program (NKDEP) does not endorse the use of the MDRD equation for patients that are not between the ages of 18 and 70, are , have extremes of body size, muscle mass, or nutritional status, or are non- or non-. According to the National Kidney Foundation, irrespective of diagnosis, the stage of the disease is based on the level of kidney function: Stage Description GFR(mL/min/1.73 m(2)) 1 Kidney damage with normal or decreased GFR 90 2 Kidney damage with mild decrease in GFR 60-89 3 Moderate decrease in GFR 30-59 4 Severe decrease in GFR 15-29 5 Kidney failure <15 (or dialysis) 22 HDL Interpretation: Undesirable: High Risk: Less than 40 mg/dL Desirable: Low Risk: Greater than 60 mg/dL 23 LDL Interpretation: Low Risk Optimal Level: LDL Less than 100 mg/dL Near or Above Optimal: LDL 100-129 mg/dL Borderline High Risk: LDL 130-159 mg/dL High Risk: LDL 160-189 mg/dL Very High Risk: LDL Greater than 189 mg/dL 24 Microalbuminuria in a random sample is defined as: Microalbumin/Creatinine ratio of 30-299 ug/mg. 25 Because ethnic data is not always readily available, this report includes an eGFR for both -Americans and non- Americans. The National Kidney Disease Education Program (NKDEP) does not endorse the use of the MDRD equation for patients that are not between the ages of 18 and 70, are , have extremes of body size, muscle mass, or nutritional status, or are non- or non-. According to the National Kidney Foundation, irrespective of diagnosis, the stage of the disease is based on the level of kidney function: Stage Description GFR(mL/min/1.73 m(2)) 1 Kidney damage with normal or decreased GFR 90 2 Kidney damage with mild decrease in GFR 60-89 3 Moderate decrease in GFR 30-59 4 Severe decrease in GFR 15-29 5 Kidney failure <15 (or dialysis) Procedures Date CPT Code Description Status 08/29/2017 25270 EKG Tracing & Interpretation Completed 08/24/2017 36436 Interrogation Implant Cardiovasc Monitor System Incl Completed Analysis Int 08/24/2017 05373 Icd Eval With Inerative Adjustmt Dual Lead System Completed 01/24/2017 Colonoscopy Completed 11/24/2016 02481 Interrogation Implant Cardiovasc Monitor System Incl Completed Analysis Int 11/24/2016 95422 Interrogation Device Eval In Person W/DR Completed Analysis,Single,Dual,Mul 10/23/2016 58500 Pulmonary Function><Bronchodil Completed 10/23/2016 55855 Diffusing Capacity Completed 10/23/2016 82462 Pulmonary Stress Test Simple Completed 10/23/2016 26631 Plethysmography Determination Lung Volumes & Per Airway Completed Resist 10/10/2016 00873 ECHO Transthoracic, Real-Time 2D With Doppler And Color Completed Flow 10/04/2016 16075 Interrogation Implant Cardiovasc Monitor System Incl Completed Analysis Int 10/04/2016 18009 Icd Eval With Iterative Adjustmt Multiple Lead System Completed 08/25/2016 90857 Interrogation Implant Cardiovasc Monitor System Incl Completed Analysis Int 08/25/2016 97369 Icd Eval With Inerative Adjustmt Dual Lead System Completed 06/21/2016 13923 Icd Eval With Inerative Adjustmt Dual Lead System Completed 06/21/2016 64974 Echocardiogram, Limited Study Completed 06/21/2016 49097 Echocardiogram, Limited Study Completed 06/16/2016 44405 EKG Tracing & Interpretation Completed 06/15/2016 14213 EKG Tracing & Interpretation Completed 06/13/2016 89378 Cardioversion Completed 06/07/2016 20594 Interrogation Implant Cardiovasc Monitor System Incl Completed Analysis Int 06/07/2016 88546 Icd Check Single,Dual Or Multiple In Person W/DR Incl Completed Heart Rhyth 06/05/2016 75074 ECHO Transthoracic, Real-Time 2D With Doppler And Color Completed Flow 05/05/2016 85542 EKG Tracing & Interpretation Completed 04/14/2016 81856 EKG Tracing & Interpretation Completed 03/27/2016 28104 Interrogation Implant Cardiovasc Monitor System Incl Completed Analysis Int 03/27/2016 46553 Icd Eval With Inerative Adjustmt Dual Lead System Completed 03/22/2016 40397 EKG Tracing & Interpretation Completed 03/06/2016 36699 ECHO Transthoracic, Real-Time 2D With Doppler And Color Completed Flow 03/03/2016 89595 EKG Tracing & Interpretation Completed 03/02/2016 60338 Icd Check Single,Dual Or Multiple In Person W/DR Incl Completed Heart Rhyth 01/18/2016 07937 Icd Eval With Inerative Adjustmt Dual Lead System Completed 01/18/2016 52772 Interrogation Implant Cardiovasc Monitor System Incl Completed Analysis Int 10/06/2015 52791 Icd Eval With Inerative Adjustmt Dual Lead System Completed 10/01/2015 40524 ECHO Transthoracic, Real-Time 2D With Doppler And Color Completed Flow 08/05/2015 81997 Polysomnography Sleep Staging 4+ Parameters Completed 07/19/2015 23420 Pulmonary Stress Test Simple Completed 07/07/2015 92830 Plethysmography Determination Lung Volumes & Per Airway Completed Resist 07/07/2015 50942 Spirometry Incl Graphic Record Completed 06/29/2015 66488 ECHO Transthoracic, Real-Time 2D With Doppler And Color Completed Flow 06/09/2015 96599 Interrogation Implant Cardiovasc Monitor System Incl Completed Analysis Int 06/09/2015 51328 Icd Eval With Inerative Adjustmt Dual Lead System Completed 06/01/2015 42007 EKG Tracing & Interpretation Completed 04/13/2015 19208 Catheter Placement In Coronary Artery,W/RT & LT Cath Completed Bustillo Bypass 04/08/2015 02721 EKG Tracing & Interpretation Completed 03/25/2015 05605 ECHO Transthoracic, Real-Time 2D With Doppler And Color Completed Flow 03/11/2015 96617 Stress Test Completed 03/11/2015 50923 Myocardial Perfusion Imaging Tomographic (Spect) Completed Multiple Studies 02/01/2015 33791 Interrogation Implant Cardiovasc Monitor System Incl Completed Analysis Int 02/01/2015 95133 Icd Eval With Inerative Adjustmt Dual Lead System Completed 10/29/2014 14418 ECHO Transthoracic, Real-Time 2D With Doppler And Color Completed Flow 09/14/2014 88512 Interrogation Implant Cardiovasc Monitor System Incl Completed Analysis Int 09/14/2014 00506 Interrogation Implant Cardiovasc Monitor System Incl Completed Analysis Int 09/14/2014 23456 Icd Check Single,Dual Or Multiple In Person W/DR Incl Completed Heart Rhyth 07/03/2014 96218 Icd Eval With Inerative Adjustmt Dual Lead System Completed 03/24/2014 65198 Interrogation Implant Cardiovasc Monitor System Incl Completed Analysis Int 03/24/2014 93816 Icd Check Single,Dual Or Multiple In Person W/DR Incl Completed Heart Rhyth 03/24/2014 52281 Icd Check Single,Dual Or Multiple In Person W/DR Incl Completed Heart Rhyth 01/30/2014 00748 EKG Tracing & Interpretation Completed 09/03/2013 55162 Interrogation Implant Cardiovasc Monitor System Incl Completed Analysis Int 09/03/2013 42268 Icd Eval With Inerative Adjustmt Dual Lead System Completed 05/06/2013 49463 Interrogation Implant Cardiovasc Monitor System Incl Completed Analysis Int 05/06/2013 00316 Icd Check Single,Dual Or Multiple In Person W/DR Incl Completed Heart Rhyth 01/02/2013 10634 Interrogation Implant Cardiovasc Monitor System Incl Completed Analysis Int 01/02/2013 32919 Icd Check Single,Dual Or Multiple In Person W/DR Incl Completed Heart Rhyth 09/12/2012 41859 Interrogation Implant Cardiovasc Monitor System Incl Completed Analysis Int 09/12/2012 90770 Icd Eval With Inerative Adjustmt Dual Lead System Completed 05/15/2012 30437 Interrogation Implant Cardiovasc Monitor System Incl Completed Analysis Int 05/15/2012 35493 Icd Eval With Inerative Adjustmt Dual Lead System Completed Encounters Type Date Location Provider CPT E/M Dx Office Visit 11/24/2016 [facility] Steven Frye, 55901 Z95.810 2:45p [place] I25.5 I47.2 Z95.2 Office Visit 11/21/2016 9:45a [facility] [place] [address] J84.10 Services Of [facility] G47.33 Office Visit 10/17/2016 1:30p [facility] [place] [address] G47.33 [facility] J84.10 Office Visit 10/11/2016 12:00p [facility] Mary Lou Frye, 03715 I25.5 [place] Z95.810 Z95.2 I50.22 Office Visit 10/03/2016 8:30a [facility] [place] [address] J84.10 Services Of [facility] G47.33 Office Visit 09/18/2016 3:00p [facility] Services Of Ron Messer, 37930 R42 C.M.ADesmond AT [place] Meek R55 Office Visit 07/12/2016 11:15a [facility] Mary Lou Frye 64825 I25.5 Perioperative Manager M.D. Z95.2 Z95.810 I48.1 I50.22 Office Visit 06/16/2016 1:30p [facility] Stevensandra Frye, 46081 Z95.810 Perioperative Manager M.D. I25.5 Z95.2 I48.1 Office Visit 06/07/2016 10:45a [facility] Stevensandra Frye, 89087 I25.5 Perioperative Manager M.D. Z95.810 I50.22 R06.02 Z95.2 I48.1 Office Visit 05/16/2016 10:30a [facility] MIRNA Jacome 24899 I25.5 I50.22 R60.0 R06.02 Office Visit 05/12/2016 3:00p [facility] MIRNA Jacome 25353 I25.5 Z95.810 Z95.2 I50.43 Office Visit 05/05/2016 1:15p [facility] Steven Frye, 07083 I25.5 Perioperative Manager M.D. Z95.810 R06.02 Z95.2 I50.43 Office Visit 04/14/2016 12:00p [facility] Steven Frye, 11894 I25.5 Perioperative Manager M.D. Z95.810 R60.0 R06.02 Office Visit 03/31/2016 11:45a [facility] [place] [address] J84.10 Services Of [facility] G47.33 Office Visit 03/22/2016 8:15a [facility] Steven Frye, 14200 I25.5 Perioperative Manager M.D. Z95.810 Z95.2 Office Visit 03/09/2016 10:32a [facility] Bethany Kearney 40606 I50.43 Assoc,pc Hospitalists M.D. I25.5 E10.319 I47.2 Office Visit 03/08/2016 10:32a [facility] [place] [address] I50.43 Hospitalists I25.5 E10.319 I47.2 Office Visit 03/03/2016 1:00p [facility] MIRNA Jacome 76002 I25.5 Z95.810 R60.9 R06.02 Office Visit 11/05/2015 11:45a [facility] [place] [address] G47.33 Services Of Perioperative Manager J84.10 R09.02 Office Visit 10/08/2015 9:30a [facility] Steven Frye, 44952 I25.5 [facility] M.D. Z95.810 Z95.2 I35.0 I47.2 Office Visit 08/31/2015 10:00a [facility] [place] [address] G47.33 Services Of Perioperative Manager J98.4 Office Visit 07/19/2015 8:45a [facility] [place] [address] J98.4 Services Of Perioperative Manager G47.33 Office Visit 07/02/2015 9:30[facility] [address] I25.5 [facility].D. I25.810 Z95.2 I44.7 Office Visit 06/01/2015 1:30p [facility] Steven Frye, 20206 I25.5 [facility] AT [facility] M.D I25.810 I35.0 Office Visit 04/20/2015 1:15p [facility] Steven Frye, 64747 I25.810 [facility] AT [facility] M.D. I25.5 I35.0 Office Visit 04/08/2015 10:45a [facility] Steven Kiley Frye, 02896 I25.5 [facility] M.D. I25.810 I47.2 I35.0 R94.31 Office Visit 03/05/2015 3:45p [facility], 24670 I25.10 [facility] M.D. I25.5 R06.02 Office Visit 10/16/2014 10:45a [facility] Steven Kiley Frye, 63782 427.1 [facility] M.DDesmond 414.9 425.4 785.2 Office Visit 01/30/2014 2:30p [facility] Kiley Frye, 59534 425.4 [facility] M.DDesmond 427.1 414.9 414.02 Office Visit 01/17/2013 9:00a [facility] Steven Frye, 69694 425.4 [place] 427.1 414.9 414.02 Office Visit 05/17/2012 8:00a [facility] Steven Frye, 47604 425.4 [place] 414.9 427.31 Plan of Care Future Appointment(s):11/21/2017 9:15 am - Helen Segura MD at [facility]08/29/2017 - Steven Frye M.D.Z95.810 Presence of automatic (implantable) cardiac defibrillatorFollow up:4 hztukyH63.2 Ventricular atnpusznpvzE97.5 Ischemic bwqffertiocuqfN04.2 Presence of prosthetic heart valve
[2017-09-24] MEDS ORDERED: Vancomycin(*) 1,250 MG in NS 0.9% 250 ML* 250 ML IVPB ONE (13:23)
[2017-09-24] MEDS ORDERED: Piperacillin/Tazobac ADVAN(*) 3.375 GM in NS 0.9% 100 ML* 100 ML IVPB ONE (13:26)
[2017-09-24 13:46] LABS: ABS Basophils 0.1 10^3/ul (0-0.2); ABS Eosinophils 0.1 10^3/ul (0-0.6); ABS Lymphocytes 1.1 10^3/ul (1.0-4.8); ABS Monocytes 0.7 10^3/ul (0-0.8); ABS Nucleated RBC 0 10^3/ul; Eosinophil % 1.7 % (0-6); Hematocrit 35 % (42-52); Hemoglobin 11.5 g/dl (14.0-18.0); Lymphocyte % 15.5 % (25-47); Mean Corpuscular HGB Conc 33 g/dl (31-36); Mean Corpuscular Hemoglobin 29 pg (27-31); Mean Corpuscular Volume 86 fL (80-94); Mean Platelet Volume 7.4 um3 (7.4-10.4); Nucleated Red Blood Cells % 0; Platelet Count 198 10^3/ul (150-450); Red Blood Count 4.01 10^6/ul (4.00-5.40); Red Cell Distribution Width 20 % (10.5-15)
--- NOTE | 2017-09-24 14:23 | RAD ---
HISTORY: acute swelling,r/o dvt, suspect cellulitis COMPARISONS: None relevant TECHNIQUE: Multiple transverse and longitudinal ultrasound images were obtained of the left lower extremity from the level of the common femoral vein inferiorly through to the infrapopliteal veins using grayscale, color Doppler, and spectral Doppler imaging with and without compression and with augmentation. Comparison images were obtained of the contralateral common femoral vein. FINDINGS: VEINS: The venous system of the left lower extremity is compressible throughout its course, with normal flow on color Doppler imaging and normal response to augmentation on spectral Doppler imaging. SOFT TISSUES: Unremarkable. OTHER FINDINGS: None. IMPRESSION: NO LEFT LOWER EXTREMITY DEEP VEIN THROMBOSIS
[2017-09-24 14:55] LABS: EGFR Non-African American 55.1 (>60)
[2017-09-24] MEDS ORDERED: Albuterol 2.5 MG/3 ML NEB.SOL* (0.083%) INH PRN (15:39)
[2017-09-24] MEDS ORDERED: Magnesium Hydroxide LIQ* 30 ML UDC PO PRN (15:39)
[2017-09-24] MEDS ORDERED: Acetaminophen TAB* 325 MG PO PRN (15:39)
[2017-09-24] MEDS ORDERED: Morphine VIAL* 4 MG/ML VIAL (1 ml vial) IV PRN (15:39)
[2017-09-24] MEDS ORDERED: Ondansetron INJ* 2 MG/ML VIAL IV PRN (15:39)
[2017-09-24] MEDS ORDERED: Al Hydrox/Mg Hydrox/Simet LIQ* 30 ML UDC PO PRN (15:39)
[2017-09-24] MEDS ORDERED: Dextrose 50% Syringe 50 ML* 25 GM/50 ML SYRINGE IV PUSH PRN (15:46)
[2017-09-24] MEDS ORDERED: Zosyn per Pharmacy* NOTE FOLLOW UP SCH (16:00)
[2017-09-24] MEDS ORDERED: Insulin LISPRO* 1 UNITS UNIT SUBCUT SCH (16:30)
--- NOTE | 2017-09-24 17:29 | ED ---
Jaqueline Martino Jacob, scribed for Agustín Tracey MD on 09/24/17 at 1323 . Lower Extremity - HPI Summary HPI Summary: This is a 77 y/o man with multiple medical comorbities who presents with a 2 day h/o progressively worsening erythema, pain and swelling of the left foot and lower leg. On traige, pt rates pain 10/10. There has been some streaking on the dorsum of the foot. There is no fever, no risk factors for DVT. He has a chronic wound on the left 2nd toe of the foot that unroofed a scab yesterday, and present symptoms began soon after that. He has had similar ulcers that have healed, albeit slowly. - History of Current Complaint Chief Complaint: EDExtremityLower Stated Complaint: LT LEG INJURY Time Seen by Provider: 09/24/17 13:10 Hx Obtained From: Patient Onset of Pain: Days - 2 days ago Onset/Duration: Days - 2 days ago Severity Currently: Severe Pain Intensity: 10 Pain Scale Used: 0-10 Numeric - 10/10 Location: Is Discrete @ - LLE Associated Signs And Symptoms: Positive: Swelling, Redness, Other - POSITIVE: streaking on dorsum of left foot, chronic wound that unroofed scab yesterday. Negative: Fever Aggravating Factor(s): Nothing Alleviating Factor(s): Nothing - Allergies/Home Medications Allergies/Adverse Reactions: Allergies Allergy/AdvReac Type Severity Reaction Status Date / Time amiodarone Allergy Unknown Verified 09/24/17 12:37 Reaction Details Home Medications: Home Medications Docusate CAP* [Colace Cap*] 100 mg PO BID 09/24/17 [History Confirmed 09/24/17] Ferrous Sulfate TAB* 325 mg PO BID 09/24/17 [History Confirmed 09/24/17] Gabapentin CAP(*) [Neurontin 100 mg CAP(*)] 100 mg PO QAM 09/24/17 [History Confirmed 09/24/17] Insulin LISPRO* [HumaLOG*] 0 units SUBCUT DIRECTED 09/24/17 [History Confirmed 09/24/17] Magnesium Oxide TAB* [MagOx 400 TAB*] 800 mg PO QAM 09/24/17 [History Confirmed 09/24/17] Melatonin (NF) 3 mg PO BEDTIME 09/24/17 [History Confirmed 09/24/17] Pantoprazole TAB (NF) [Protonix TAB (NF)] 40 mg PO QAM 09/24/17 [History Confirmed 09/24/17] Torsemide TAB* [Demadex*] 10 mg PO DAILY 09/24/17 [History Confirmed 09/24/17] traZODone TAB* [Desyrel TAB*] 50 mg PO BEDTIME 09/24/17 [History Confirmed 09/24] PMH/Surg Hx/FS Hx/Imm Hx Endocrine/Hematology History: Reports: Hx Anticoagulant Therapy, Hx Diabetes Denies: Hx Thyroid Disease Cardiovascular History: Reports: Hx Coronary Artery Disease, Hx Pacemaker/ICD - PACEMAKER, Other Cardiovascular Problems/Disorders - ACS, 2010; Vtach; CABG Denies: Hx Hypertension Respiratory History: Denies: Hx Asthma, Hx Chronic Obstructive Pulmonary Disease (COPD) GI History: Denies: Hx Ulcer Sensory History: Reports: Hx Contacts or Glasses Opthamlomology History: Reports: Hx Contacts or Glasses - Cancer History Cancer Type, 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 cardiatic=bypass. =5 yrs ago. aortic valve placement=may 2015. ICD. [facility] Hx Anesthesia Reactions: No - Immunization History Date of Tetanus Vaccine: up to date Date of Influenza Vaccine: 2015 Infectious Disease History: No Infectious Disease History: Reports: Hx Shingles Denies: Hx Hepatitis, Hx Human Immunodeficiency Virus (HIV), Traveled Outside the [place] in Last 30 Days - Family History Known Family History: Positive: Cardiac Disease, Hypertension, Diabetes Family History: FHx of CVA - Father - Social History Alcohol Use: Daily Alcohol Amount: 1/2 GLASS WINE Substance Use Type: Reports: None Smoking Status (MU): Former Smoker Review of Systems Negative: Fever Positive: Edema - left leg and foot Positive: Other - erythema of left leg and foot, streaking on dorsum of foot. Chronic wound on 2nd toe of left foot. All Other Systems Reviewed And Are Negative: Yes Physical Exam - Summary Physical Exam Summary: Appearance: Well-appearing, Well-nourished, lying in bed comfortably Skin: Warm, dry, no obvious rash Eyes: sclera anicteric, no conjunctival pallor ENT: mucous membranes moist, pharynx appears normal Neck: Supple, nontender Respiratory: Clear to auscultation, no signs of respiratory distress Cardiovascular: Normal S1, S2. Normal distal pulses in tibial and radial bilaterally. Mechanical sounds obscuring heart. Abdomen: Soft, nontender, normal active bowel sounds present Musculoskeletal: Strength/ROM Intact, Swelling in anterior and dorsal of left foot, ulcerated on left second toe. No calf tenderness, some red streaking on dorsum of left foot. No angioedema nor calf tenderness of left foot. Neurological: A&Ox3, awake and alert, mentation is normal, speech is fluent and appropriate Psychiatric: affect is normal, does not appear anxious or depressed Triage Information Reviewed: Yes Vital Signs On Initial Exam: Initial Vitals Temp Pulse Resp BP Pulse Ox 98.1 F 121 16 100/75 100 09/24/17 12:34 09/24/17 12:34 09/24/17 12:34 09/24/17 12:34 09/24/17 12:34 Vital Signs Reviewed: Yes Diagnostics - Vital Signs Vital Signs Temp Pulse Resp BP Pulse Ox 09/24/17 12:34 98.1 F 121 16 100/75 100 - Laboratory Lab Results: Lab Results 09/24/17 09/24/17 09/24/17 Range/Units 13:33 13:33 13:33 WBC 7.0 (3.5-10.8) 10^3/ul RBC 4.01 (4.00-5.40) 10^6/ul Hgb 11.5 L (14.0-18.0) g/dl Hct 35 L (42-52) % MCV 86 (80-94) fL MCH 29 (27-31) pg MCHC 33 (31-36) g/dl RDW 20 H (10.5-15) % Plt Count 198 (150-450) 10^3/ul MPV 7.4 (7.4-10.4) um3 Neut % (Auto) 71.6 (38-83) % Lymph % (Auto) 15.5 L (25-47) % [place] % (Auto) 10.3 H (0-7) % Eos % (Auto) 1.7 (0-6) % Baso % (Auto) 0.9 (0-2) % Absolute Neuts (auto) 5.0 (1.5-7.7) 10^3/ul Absolute Lymphs (auto) 1.1 (1.0-4.8) 10^3/ul Absolute Monos (auto) 0.7 (0-0.8) 10^3/ul Absolute Eos (auto) 0.1 (0-0.6) 10^3/ul Absolute Basos (auto) 0.1 (0-0.2) 10^3/ul Absolute Nucleated RBC 0 10^3/ul Nucleated RBC % 0 Sodium 132 L (135-145) mmol/L Potassium 4.7 (3.5-5.0) mmol/L Chloride 97 L (101-111) mmol/L Carbon Dioxide 30 (22-32) mmol/L Anion Gap 5 (2-11) mmol/L BUN 43 H (6-24) mg/dL Creatinine 1.27 H (0.67-1.17) mg/dL Est GFR ( Amer) 66.7 (>60) Est GFR (Non-Af Amer) 55.1 (>60) BUN/Creatinine Ratio 33.9 H (8-20) Glucose 332 H (70-100) mg/dL Lactic Acid 1.3 (0.5-2.0) mmol/L Calcium 9.3 (8.6-10.3) mg/dL Total Bilirubin 0.50 (0.2-1.0) mg/dL AST 20 (13-39) U/L ALT 12 (7-52) U/L Alkaline Phosphatase 233 H (34-104) U/L Total Protein 8.5 (6.4-8.9) g/dL Albumin 3.6 (3.2-5.2) g/dL Globulin 4.9 H (2-4) g/dL Albumin/Globulin Ratio 0.7 L (1-3) Result Diagrams: 09/24/17 13:33 09/24/17 13:33 Lab Statement: Any lab studies that have been ordered have been reviewed, and results considered in the medical decision making process. - Ultrasound No standard instances Ultrasound Interpretation: No Acute Changes Ultrasound Interpretation Completed By: Radiologist - venous dopplar study shows no LLE DVT. This report was reviewed by ED physician. Re-Evaluation - Re-Evaluation First Eval Re-Evaluation Time: 14:54 Comment: Discussed results of tests and plan of care for patient. Lower Extremity Course/Dx - Diagnoses Provider Diagnoses: Cellulitis, Diabetic foot ulcer - Physician Notifications Discussed Care Of Patient With: Stephany Loving Time Discussed With Above Provider: 14:30 Instructed by Provider To: Other - Dr. Loving accepts pt for admission Discharge - Sign-Out/Discharge Documenting (check all that apply): Discharge/Admit/Transfer - admit - Discharge Plan Condition: Fair Disposition: ADMITTED TO [facility] - Billing Disposition and Condition Condition: FAIR Disposition: Admitted to [facility] The documentation as recorded by the Jaqueline shoemaker Jacob accurately reflects the service I personally performed and the decisions made by , Agustín Tracey MD.
[2017-09-24] MEDS ORDERED: INSULIN LISPRO PUMP SUBCUT SCH (18:30)
[2017-09-24] MEDS: oxyCODONE/Acetamin 5/325 MG* TAB PO PRN (18:33)
--- NOTE | 2017-09-24 19:48 | HP ---
CC: Dr. Liana Loza from [place] * ADMISSION HISTORY AND PHYSICAL: DATE OF ADMISSION: 09/24/17 PATIENT OF ATTENDING HOSPITALIST: Dr. Stephany Pelayo.* (DICTATED BY MIRNA GARCÍA) PRIMARY CARE PHYSICIAN: Dr. Liana Loza. CHIEF COMPLAINT: Left lower extremity redness and pain. HISTORY OF PRESENT ILLNESS: Mr. Hollis is a 77-year-old gentleman who carries past medical history significant for ischemic cardiomyopathy, coronary artery disease as well as history of recent LVAD back in March of this year who presented to the emergency room with a 1 month history of worsening left lower extremity redness and pain. The patient has a known peripheral vascular disease , which was part of his workup regarding an LVAD that was eventually done last March. The patient is not considered a good candidate for heart transplant that is why he had that procedure was done. He has history of chronic peripheral vascular disease with occasional lower extremity ulcers that was treated with conservative measures in the past. He reports increasing pain on the left lower extremity with some redness localized to the dorsal aspect of his foot as well as his second toe. According to his , who has been changing his dressing, she noticed his ulcer that was covered with scab has eventually detached and started to bleed earlier this morning. He denies any numbness, tingling, weakness, calf pain, fever, chills or any other associated symptoms. The patient was evaluated in the emergency room and was found to have normal white count on CBC. He also had a venous Doppler study of the left lower extremity that revealed no evidence of deep vein thrombosis. Given his ongoing symptoms, we were asked to see the patient for further evaluation and to consider admission for IV antibiotics and to get ID consultation regarding his chronic lower extremity ulcers. PAST MEDICAL HISTORY: Significant for: 1. Coronary artery disease. 2. Ischemic cardiomyopathy. 3. History of ventricular tachycardia. 4. Status post ICD placement. 5. Type 1 diabetes mellitus that was managed with an insulin pump; however, the patient is using subcu insulin per sliding scale. 6. Severe aortic stenosis. 7. Status post aortic valve replacement. 8. 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 9. Obstructive sleep apnea, for which he has been using CPAP in the past. 10. Left-sided heart failure with LVAD done in March of this year. PAST SURGICAL HISTORY: Significant for: 1. Coronary artery bypass graft. 2. Aortic valve replacement. 3. ICD placement. 4. Humerus surgery. 5. Hand surgery. 6. Removal of skin cancer. 7. Most recently, an LVAD placement in March of this year. CURRENT MEDICATIONS: His medications at home include: 1. Colace 100 mg p.o. b.i.d. 2. Ferrous sulfate 325 mg p.o. b.i.d. 3. Neurontin 100 mg p.o. daily. 4. Insulin lispro subcu per sliding scale at home. 5. Mag oxide 800 mg p.o. q.a.m. 6. Melatonin 3 mg p.o. q.h.s. 7. Protonix 40 mg p.o. daily. 8. Demadex 10 mg p.o. daily. 9. Desyrel 50 mg p.o. q.h.s. ALLERGIES: He is allergic to AMIODARONE. FAMILY HISTORY: Significant for his father with coronary artery disease as well as his mother and brother with celiac disease. SOCIAL HISTORY: The patient is retired. He is former smoker, quit about 45 years ago, but he used to smoke heavily 2 to 3 packs a day. He drinks 1 to 2 glasses of wine every night and denies illicit drug use. His is his healthcare proxy carrier and he wishes to be a full code. REVIEW OF SYSTEMS: See HPI. Otherwise, 14 points of review of systems were evaluated and were negative otherwise. PHYSICAL EXAMINATION GENERAL: He is a pleasant older male, in no acute distress or discomfort at the time of admission. VITAL SIGNS: Revealed temperature of 98.1, pulse of 90, blood pressure of 109/ 87, O2 sat of 100% on room air. HEENT: Head is normocephalic, atraumatic. Sclerae are anicteric. PERRLA. EOMs intact. Oropharynx is pink and moist. NECK: Supple. Trachea midline. No cervical adenopathy, thyromegaly or JVD. LUNGS: Clear to auscultation bilaterally. HEART: Regular rate and rhythm noted. There is audible musical found from LVAD device noted with external wiring and battery compartment around the patient's Vest. There is no chest wall tenderness or evidence of ecchymosis. BACK: With normal curvature. No CVA tenderness. ABDOMEN: Soft, nontender and nondistended. No hernias, masses or hepatosplenomegaly. RECTAL: Exam deferred at this time. EXTREMITIES: Without cyanosis, clubbing or edema. Examination of the lower extremities revealed mild left lower extremity erythema and tenderness along the dorsal aspect of the foot extending to the anterior and medial tibial part with some darker pigmentation noted bilaterally consistent with probable history of chronic venous stasis. There are small superficial ulcers noted on both lower extremities with no evidence of active bleeding or discharge. Pedal pulse was 2+ bilaterally. There was no edema or clubbing noted. NEUROLOGIC: He is awake, alert and oriented x4. Tongue is midline. Hand grasp equal bilaterally. There is no gross neurological deficit noted. LABORATORY WORKUP: CBC with white count of 7,000, hemoglobin 11.5, hematocrit of 35 and platelets of 198. Chemistry panel with sodium of 132, potassium 4.7, chloride 97, CO2 of 30, BUN 43 and creatinine of 1.27. His glucose was 332. Lactic acid 1.3. LFTs within normal limits, except for elevated alkaline phosphatase of 233. ACCESSORY DIAGNOSTIC DATA: Doppler study of left lower extremity with no evidence of DVT. ASSESSMENT AND PLAN: A 77-year-old gentleman with multiple cardiac issues in the past including ischemic cardiomyopathy, coronary artery disease who is status post ICD placement, aortic valve replacement as well as recent LVAD in March of this year who presented to the emergency room with 1 month history of worsening left lower extremity redness, pain and foot swelling, for which he will be admitted for the following plans: 1. Left lower extremity cellulitis. Based on his exam, there is swelling noted as well as redness consistent with cellulitis extending from his dorsal aspect of the foot to possibly mid tibial aspect. We will cover him prophylactically with Zosyn to be adjusted by pharmacy given his elevated BUN and creatinine, which I suspect is probably secondary to his long-term diabetic issues. We will also provide Pain Management as needed. I have contacted Dr. Chambers for an ID consultation, probably need to obtain cultures and tailor antibiotic coverage based on that. He had received a dose of vancomycin and Zosyn in the ED earlier today. We will repeat laboratory workup for tomorrow. 2. History of congestive heart failure. Appears to be stable. No issue at this time since his LVAD placed last March. 3. Type 1 diabetes mellitus. The patient is no longer on insulin pump. Has been checking his fingersticks and provide coverage per sliding scale using lispro and we will continue that in the hospital. 4. History of pulmonary fibrosis secondary to amiodarone. The patient did not require any oxygen and appears to be stable at this point. 5. History of obstructive sleep apnea. I am not sure if he has been using his CPAP, but I will ask and provide at night during sleep. 6. DVT prophylaxis. He is a high risk and will be covered with subcu heparin. 7. Code status. The patient is a full code. TIME SPENT: Approximately 60 minutes were spent admitting this patient, with greater than 50% on [id number] obtaining history and performing physical exam. I have discussed the case with my attending, who agreed to plans and we will follow him up accordingly. MIRNA GARCÍA [id number]/CPS #: [id number] NAVA
[2017-09-24] MEDS: ZOSYN 3.375 GM Q8H per EXTENDED INFUSION IVPB SCH ×2 (20:07)
[2017-09-24] MEDS ORDERED: traZODone TAB* 50 MG TAB PO SCH (21:00)
[2017-09-24] MEDS ORDERED: Melatonin 3 MG TAB PO SCH (21:00)
[2017-09-24] MEDS: Docusate CAP* 100 MG PO SCH (21:04)
[2017-09-24] MEDS: Heparin VIAL(*) 5000 UNITS/ML VIAL (FIVE THOUSAND) SUBCUT SCH (21:08)
[2017-09-24] MEDS: Ferrous Sulfate TAB* 325 MG PO SCH (21:09)
[2017-09-24] MEDS ORDERED: Piperacillin/Tazobac ADVAN(*) 3.375 GM in NS 0.9% 100 ML* 100 ML IVPB SCH (22:00)
[2017-09-25] MEDS: ZOSYN 3.375 GM Q8H per EXTENDED INFUSION IVPB SCH ×4 (04:05→14:53)
[2017-09-25 05:54] LABS: ABS Basophils 0 10^3/ul (0-0.2); ABS Eosinophils 0 10^3/ul (0-0.6); ABS Lymphocytes 0.4 10^3/ul (1.0-4.8); ABS Monocytes 0.5 10^3/ul (0-0.8); ABS Nucleated RBC 0 10^3/ul; Hematocrit 29 % (42-52); Mean Corpuscular HGB Conc 31 g/dl (31-36); Mean Corpuscular Hemoglobin 23 pg (27-31); Mean Corpuscular Volume 74 fL (80-94); Platelet Count 336 10^3/ul (150-450); Red Blood Count 3.85 10^6/ul (4.00-5.40); Red Cell Distribution Width 21 % (10.5-15)
[2017-09-25 05:58] LABS: Eosinophil % 0.4 % (0-6); Lymphocyte % 7.5 % (25-47); Nucleated Red Blood Cells % 0
[2017-09-25] MEDS: Heparin VIAL(*) 5000 UNITS/ML VIAL (FIVE THOUSAND) SUBCUT SCH ×2 (06:09→14:53)
[2017-09-25] MEDS: oxyCODONE/Acetamin 5/325 MG* TAB PO PRN (06:30)
[2017-09-25 08:54] LABS: EGFR Non-African American 61.2 (>60)
[2017-09-25] MEDS ORDERED: Gabapentin CAP(*) 100 MG PO SCH (09:00)
[2017-09-25] MEDS ORDERED: Magnesium Oxide TAB* 400 MG PO SCH (09:00)
[2017-09-25] MEDS ORDERED: Torsemide TAB* 20 MG PO SCH (09:00)
[2017-09-25] MEDS ORDERED: Omeprazole CAP* 20 MG PO SCH (09:00)
[2017-09-25] MEDS: Ferrous Sulfate TAB* 325 MG PO SCH (10:26)
[2017-09-25] MEDS: Docusate CAP* 100 MG PO SCH ×2 (10:27→10:32)
--- NOTE | 2017-09-25 14:01 | PN ---
Subjective Date of Service: 09/25/17 Interval History: Patient seen and examined. States increasing pain in left foot and britton, originates in the left second toe and radiates upward. Denies fever or chills, denies chest pain, no SOB, no further complaints. Objective Active Medications: Acetaminophen (Tylenol Tab*) 650 mg PO Q4H PRN PRN Reason: FEVER/PAIN Last Admin: 09/24/17 21:09 Dose: 650 mg Al Hydrox/Mg Hydrox/Simethicone (Maalox Plus*) 30 ml PO Q6H PRN PRN Reason: INDIGESTION Albuterol (Ventolin 2.5 Mg/3 Ml Neb.Azucena*) 2.5 mg INH RT.Y0BY-OBRHY AWAKE PRN PRN Reason: sob/wheezing Dextrose (D50w Syringe 50 Ml*) 12.5 gm IV PUSH .FOR FS < 60 - SS PRN PRN Reason: FS < 60 Docusate Sodium (Colace Cap*) 100 mg PO BID [facility] Last Admin: 09/25/17 10:32 Dose: Not Given Ferrous Sulfate (Ferrous Sulfate Tab*) 325 mg PO BID [facility] Last Admin: 09/25/17 10:26 Dose: 325 mg Gabapentin (Neurontin Cap(*)) 100 mg PO QAM [facility] Last Admin: 09/25/17 10:26 Dose: 100 mg Heparin Sodium (Porcine) (Heparin Vial(*)) 5,000 units SUBCUT Q8HR [facility] Last Admin: 09/25/17 06:09 Dose: 5,000 units Piperacillin Sod/Tazobactam (Sod 3.375 gm/ Sodium Chloride) 100 mls @ 25 mls/ hr IVPB Q8H [facility] Last Admin: 09/25/17 04:05 Dose: 25 mls/hr Insulin Human Lispro (Humalog*) 0 units SUBCUT .CONTINUOUS [facility] Magnesium Hydroxide (Milk Of Magnesia Liq*) 30 ml PO Q4H PRN PRN Reason: CONSTIPATION Magnesium Oxide (Magox 400 Tab*) 800 mg PO QAM [facility] Last Admin: 09/25/17 10:26 Dose: 800 mg Melatonin (Melatonin) 3 mg PO BEDTIME [facility] Last Admin: 09/24/17 21:09 Dose: 3 mg Morphine Sulfate (Morphine Vial*) 2 mg IV Q2H PRN PRN Reason: PAIN Omeprazole (Prilosec Cap*) 20 mg PO QAM [facility] Last Admin: 09/25/17 10:27 Dose: 20 mg Ondansetron HCl (Zofran Inj*) 4 mg IV Q4H PRN PRN Reason: NAUSEA/VOMITING Oxycodone/Acetaminophen (Percocet 5/325 Tab*) 2 tab PO Q6H PRN PRN Reason: Pain Last Admin: 09/25/17 06:30 Dose: 2 tab Pharmacy Consult (Zosyn Per Pharmacy*) 1 note FOLLOW UP .ZOSYN PER PHARMACY [facility] Torsemide (Demadex*) 10 mg PO DAILY [facility] Last Admin: 09/25/17 10:26 Dose: 10 mg Trazodone HCl (Desyrel Tab*) 50 mg PO BEDTIME [facility] Last Admin: 09/24/17 21:09 Dose: 50 mg Vital Signs - 8 hr 09/25/17 09/25/17 09/25/17 06:30 08:00 08:35 Pulse Rate 89 Respiratory 16 18 Rate Blood Pressure 90/65 (mmHg) O2 Sat by Pulse 96 Oximetry 09/25/17 10:26 Pulse Rate Respiratory 20 Rate Blood Pressure (mmHg) O2 Sat by Pulse Oximetry Oxygen Devices in Use Now: None Appearance: Alert, NAD Eyes: PERRLA Ears/Nose/Mouth/Throat: NL Teeth, Lips, Gums Neck: NL Appearance and Movements; NL JVP, Trachea Midline Respiratory: Symmetrical Chest Expansion and Respiratory Effort, Clear to Auscultation Cardiovascular: - - LVAD intact and functioning, no alarms noted, no ectopy on tele Extremities: - - edema left dorsal aspect of the foot and toes, right great toe with scab/eschar, left patella with scabbed superficial abrasion Neurological: Alert and Oriented x 3 Nutrition: Taking PO's Result Diagrams: 09/25/17 05:33 09/25/17 08:05 Additional Lab and Data: Lab Results 09/24/17 09/24/17 09/24/17 Range/Units 13:33 13:33 13:33 WBC 7.0 (3.5-10.8) 10^3/ul RBC 4.01 (4.00-5.40) 10^6/ul Hgb 11.5 L (14.0-18.0) g/dl Hct 35 L (42-52) % MCV 86 (80-94) fL MCH 29 (27-31) pg MCHC 33 (31-36) g/dl RDW 20 H (10.5-15) % Plt Count 198 (150-450) 10^3/ul MPV 7.4 (7.4-10.4) um3 Neut % (Auto) 71.6 (38-83) % Lymph % (Auto) 15.5 L (25-47) % [place] % (Auto) 10.3 H (0-7) % Eos % (Auto) 1.7 (0-6) % Baso % (Auto) 0.9 (0-2) % Absolute Neuts (auto) 5.0 (1.5-7.7) 10^3/ul Absolute Lymphs (auto) 1.1 (1.0-4.8) 10^3/ul Absolute Monos (auto) 0.7 (0-0.8) 10^3/ul Absolute Eos (auto) 0.1 (0-0.6) 10^3/ul Absolute Basos (auto) 0.1 (0-0.2) 10^3/ul Absolute Nucleated RBC 0 10^3/ul Nucleated RBC % 0 Sodium 132 L (135-145) mmol/L Potassium 4.7 (3.5-5.0) mmol/L Chloride 97 L (101-111) mmol/L Carbon Dioxide 30 (22-32) mmol/L Anion Gap 5 (2-11) mmol/L BUN 43 H (6-24) mg/dL Creatinine 1.27 H (0.67-1.17) mg/dL Est GFR ( Amer) 66.7 (>60) Est GFR (Non-Af Amer) 55.1 (>60) BUN/Creatinine Ratio 33.9 H (8-20) Glucose 332 H (70-100) mg/dL Lactic Acid 1.3 (0.5-2.0) mmol/L Calcium 9.3 (8.6-10.3) mg/dL Total Bilirubin 0.50 (0.2-1.0) mg/dL AST 20 (13-39) U/L ALT 12 (7-52) U/L Alkaline Phosphatase 233 H (34-104) U/L Total Protein 8.5 (6.4-8.9) g/dL Albumin 3.6 (3.2-5.2) g/dL Globulin 4.9 H (2-4) g/dL Albumin/Globulin Ratio 0.7 L (1-3) Assess/Plan/Problems-Billing Assessment: This is a 77 year old male with history of severe cardiomyopathy, s/p LVAD insertion March 2017 that presents with LLE and foot pain and warmth and edema secondary to chronic wounds and now, cellulitis. - Patient Problems (1) Cellulitis Code(s): L03.90 - CELLULITIS, UNSPECIFIED SNOMED Code(s): 109830037 Comment: - 2/2 wound left second toe - send for xray now to evaluate for osteo - continue zosyn, s/p one dose vanco in ER - Discussed with ID, Dr. Chambers (2) Cardiomyopathy Code(s): I42.9 - CARDIOMYOPATHY, UNSPECIFIED SNOMED Code(s): 33263063 Comment: - s/p LVAD insertion March 2017 - Continue tele - Patient will have to be transferred to [place] as per patient's CT surgeon (3) Diabetes Code(s): E11.9 - TYPE 2 DIABETES MELLITUS WITHOUT COMPLICATIONS SNOMED Code(s) : 63182950 Comment: - Labile sugars with associated neuropathy - continue long and short acting insulin with SS (4) Hypotension Comment: - 2/2 VAD, low cardiac output - 90's systolic is at baseline, continue to monitor (5) Acute on chronic systolic CHF (congestive heart failure) Code(s): I50.23 - ACUTE ON CHRONIC SYSTOLIC (CONGESTIVE) HEART FAILURE SNOMED Code(s): 363435474 Comment: - Continue torsemide daily (6) GERD (gastroesophageal reflux disease) Code(s): K21.9 - GASTRO-ESOPHAGEAL REFLUX DISEASE WITHOUT ESOPHAGITIS SNOMED Code(s): 589808020 Comment: - Continue PPI (7) Full code status Code(s): Z78.9 - OTHER SPECIFIED HEALTH STATUS SNOMED Code(s): 520132944 Status and Disposition: Lengthy discussions with DIRECTOR PRISON at [facility] in [place]. Patient will require immediate transfer to [facility], as the VAD team must manage this patient and all accompanying co-morbid conditions as a part of the VAD program. Conversation with [facility] transfer center, Dr. Jimenez is accepting. They will call our transfer center to continue to coordinate.
--- NOTE | 2017-09-25 14:37 | RAD ---
HISTORY: Osteomyelitis of the left second toe COMPARISONS: None VIEWS: 2, Frontal and lateral views of the left foot FINDINGS: BONE DENSITY: Normal. BONES: There is a questionable nondisplaced fracture of the head of the proximal phalanx of the second digit. JOINTS: There is no arthropathy. ALIGNMENT: There is no dislocation. SOFT TISSUES: There is peripheral arterial calcification. There is soft tissue swelling of the forefoot. OTHER FINDINGS: None. IMPRESSION: SOFT TISSUE SWELLING WITH QUESTIONABLE NONDISPLACED FRACTURE OF THE PROXIMAL PHALANX OF THE SECOND DIGIT. GIVEN THE CLINICAL CONCERN FOR OSTEOMYELITIS, THIS MAY INDICATE THE PRESENCE OF A PATHOLOGIC FRACTURE IN THE SETTING OF OSTEOMYELITIS. IF CLINICALLY INDICATED, THIS CAN BE FURTHER EVALUATED WITH MRI OF THE LEFT FOOT.
--- NOTE | 2017-09-25 15:42 | CONS ---
CONSULTATION REPORT: DATE OF CONSULT: 09/25/17 REQUESTING PROVIDER: Fabiola Alarcon NP. CONSULTING SERVICE: Infectious Disease. REASON FOR CONSULT: Left foot infection. IMPRESSION: 1. Left lower leg and foot cellulitis with a chronic wound over the plantar surface of the left second toe, which he states has been there since June. I suspect he has underlying osteomyelitis. He had a bone scan at [facility] he thinks about 6 or 8 weeks ago, which was negative at that time, that may well have changed by now given the duration of this open wound over bony prominence. Usually polymicrobial, he is improving now after a dose of vanco and on Zosyn since then. 2. Peripheral vascular disease, nonpalpable pulse in the left foot, but it is warm. 3. Status post LVAD placement in March 2017. 4. History of ventricular tachycardia with ICD placement and pacemaker. 5. Status post aortic valve replacement. 6. Type 1 diabetes. RECOMMENDATIONS: Continue Zosyn and as long as the foot continues to improve, we will hold off on more vancomycin. We will start with plain x-ray and look for change in his chronic osteo on the second toe. If it is negative, we would consider bone scan, he can have an MRI. HISTORY OF PRESENT ILLNESS: This is a 77-year-old male with an LVAD, pacemaker and aortic valve replacement with left leg swelling and pain. He has had no fevers, chills, or sweats. He has had chronic wound on the dorsal surface of toes on both feet since June when he was in the hospital. He states the left leg has been getting more red and swollen for a couple of weeks, may be a month , there is some discrepancy between the patient and his on that. Anyway, it does center around the second toe spread up the foot, ankle, and lower leg. He was started last night on Zosyn. He did have a dose of vancomycin in the emergency room. He today has improvement in his leg swelling and redness, though he is also keeping the leg elevated since he has been here. He is eating okay and has no fevers, chills, sweats, or anorexia. He has not had an infection in the left foot since that ulcer formed. He believes he had a bone scan about 6 to 8 weeks ago in [facility] that was negative for osteomyelitis. PAST MEDICAL HISTORY: 1. Coronary artery disease, complicated by ischemic cardiomyopathy requiring LVAD in March 2017. 2. History of ventricular tachycardia, status post ICD placement and pacemaker. 3. Severe aortic stenosis, status post aortic valve replacement. 4. Type 1 diabetes mellitus. 5. Obstructive sleep apnea, on CPAP. PAST SURGICAL HISTORY: 1. Status post coronary artery bypass grafting. 2. History of hand surgery. 3. Status post resection of skin cancer. MEDICATIONS: 1. Tylenol. 2. Docusate. 3. Ferrous sulfate. 4. Gabapentin. 5. Heparin subcutaneous injection. 6. Melatonin. 7. Zosyn 3.375 g every 8 hours by extended infusion. 8. Torsemide. 9. Trazodone. ALLERGIES: AMIODARONE caused pulmonary fibrosis. FAMILY HISTORY: His father had coronary artery disease. Mother and brother both had celiac disease. SOCIAL HISTORY: He lives in [place] with his . No travel. No injection drugs. No sick contacts. REVIEW OF SYSTEMS: All negative to 14-point review of systems, except as noted above in the history of present illness. PHYSICAL EXAM: Vital Signs: Temperature 36, heart rate 90, respiratory rate 16 , blood pressure 90/65, oxygen saturation 96% on room air. In general, he is awake, not in distress. Neurologic: He is oriented x3. Answers all questions. Moves all of his extremities. HEENT: There is no conjunctival hemorrhage. Oropharynx without thrush. Neck: Supple without mass. Lymph Nodes: There is no cervical, supraclavicular, inguinal, axillary, or epitrochlear lymphadenopathy. Heart: There is a mechanical humming in his chest , although audible heart tones. Lungs: Decreased breath sounds to the left greater than right base without wheezes or rales. Abdomen: Soft, nontender, nondistended. There are bowel sounds present. There is a right side abdominal incision, which is well healed with LVAD line exiting from it. No surrounding erythema. Musculoskeletal: There is no spinal tenderness to palpation or joint synovitis. The left lower leg and foot, there is mild diffuse edema, trace erythema and warmth. There is no crepitus or fluctuance. Plantar second toe has a cm eschar with no purulent fluid expressible. He has hammertoe deformity to his toes both feet. His feet are warm, but nonpalpable pulses. DIAGNOSTIC STUDIES/LAB DATA: White blood cell count 5, hemoglobin 9, and platelets 336. Creatinine is 1.1. ALT was 12. There was an ultrasound of the left leg, which showed no deep vein thrombosis. Please see impression and recommendations outlined above, which I have discussed with Fabiola Alarcon NP. Thanks for asking me to see Mr. Hollis in consultation. [id number]/[facility] #: [id number] MTDD
[2017-09-25 15:52] VITALS: BP 99/65
--- NOTE | 2017-09-25 16:48 | TRS ---
CC: Dr. Liana Loza* DATE OF ADMISSION: 09/24/2017. DATE OF TRANSFER: 09/25/2017. ATTENDING PHYSICIAN FOR THIS ADMISSION: Dr. Stephany Pelayo. MY ATTENDING PHYSICIAN FOR TODAY: Dr. Abdon Fairchild* (dictated by Khurram Alarcon, [place]). PRIMARY CARE PHYSICIAN: Dr. Liana Loza. HOSPITAL COURSE: This is a pleasant, 77-year-old male patient who presented to the emergency department yesterday evening with a complaint of some foot pain and swelling. The patient has a history of some chronic wounds of his feet and had been in his usual state of health; however, he started to notice some redness, pain, and edema to the dorsal aspect of the left foot and also loosening of the roof of the scab of the second toe of the left foot. The patient had some subsequent bleeding after that and then increased pain and again swelling to the area. He came to the emergency department to be evaluated as the pain began increasing and sort of radiating up the leg, both anteriorly and posteriorly. The patient was evaluated by venous Doppler. He did not show a DVT, but it was very obvious that the patient had a cellulitis and possibly an osteomyelitis of the second great toe. 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 I came to see the patient this morning, I reached out to [facility] to the cardiothoracic team that had placed the VAD and after much discussion, I am in agreement that the patient should be transferred to [facility] for further management. The patient has an LVAD that cannot be managed in this facility. We are not certified to be monitoring this device. The patient was seen by Dr. Chiki Chambers from the Infectious Disease service who initiated Zosyn 3.375 gm every eight hours by extended infusion. Dr. Chambers also recommended starting with a basic x-ray of the foot which was completed today. The films of the left foot show a potentially pathologic fracture of the second toe which is likely secondary to invasion of the bone with infection and osteomyelitis. The patient will likely require surgical debridement and/or amputation, as well as long-term IV antibiotics. Again, with the patient's cardiac history and VAD insertion, it would be completely inappropriate to keep the patient in our hospital and to continue to try to manage this infection while he is currently under the care of Cardiothoracic Services at [facility] for his left ventricular assist device. We reached out to the transfer center, both for [facility] and for [facility]. The doctor accepting the patient at [facility] is Dr. Jimenez from the Cardiothoracic team. I also had a lengthy discussion with the nurse practitioner from the Heart Failure Division at [facility] who assisted in obtaining acceptance by Dr. Jimenez and the rest of the cardiothoracic team. I explained in detail to the patient the reason for his transfer. He is aware and has signed consent to be taken to [facility] this afternoon. The patient states he will call his and let her know the status of his transfer. I have offered our assistance as well in communicating to his or other family members and notifying them of the nature and reasoning behind our transferring the patient out. The patient was transferred in stable condition. All questions were answered. The patient stated his understanding of his plan of care. PHYSICAL EXAMINATION AT THE TIME OF DISCHARGE: General: The patient is awake and alert, in no acute distress. Vital Signs: As above. HEENT: Patient is atraumatic, normocephalic. PERRLA with nonicteric sclerae. Neck: Supple, nontender. No JVD noted. No carotid bruit auscultated. Cardiovascular: The patient is RSR on telemetry. Audibly there are no gallops or rubs. The mechanism of his LVAD can clearly be auscultated through the chest and appears to be functioning properly. Lungs: Clear bilaterally to auscultation with no wheezing, rhonchi, or rales. He does have a mild cough which is unproductive. Abdomen: Soft, nontender, nondistended. Positive bowel sounds all four quadrants. : Deferred. Musculoskeletal: There is no clubbing and no cyanosis. He had edema to the dorsum of the left foot with a wound to the second great toe, a superficial abrasion to the left patella, and also an eschar -type scab to the right great toe. He has diminished pulses in both of his feet. Extremities: Warm and dry. There is a certain amount of erythema and increased warmth on the left lower extremity as compared to the right. Calf size is symmetric. Neurologic: He is grossly intact with no focal deficits. Psychiatric: He is cooperative and appropriate. LABORATORY DATA: WBC 5.0, RBC 3.85, hemoglobin 9.0, hematocrit 29, platelets 336; sodium 137, potassium 4.0, chloride 102, CO2 30, BUN 33, creatinine 1.16 down from 1.27, GFR 61.2, BUN/creatinine ratio 28.4, glucose ranging between 109 and 332, calcium 9.2, AST 20, ALT 12, alk phos 233, protein 8.5, albumin 3.6 , globulin 4.9. IMAGING: Venous Doppler performed on 09/24/2017 shows no left lower extremity DVT. X-ray of the left foot dated 09/25/2017 shows soft tissue swelling with questionable nondisplaced fracture of the proximal phalanx of the second digit. Given the clinical concern for osteomyelitis, this may indicate the presence of a pathologic fracture in the setting of osteomyelitis. If clinically indicated , this can be further evaluated with MRI of the left foot. DISPOSITION: Again, the patient was transferred in stable condition. All questions were answered. The patient will be transferred to [facility] this afternoon via critical care ambulance under cardiac monitoring to Unit [id number] at [facility]. KHURRAM ALARCON NP [id number]/[facility] #: [id number] [facility] HOSPITALSkyler
== END 2017-09-25 16:15 | disposition short-term general hospital (02) | DRG 637 ==
LOC: ED 12:28 → MED 15:39 → OBSVTOIN 09-25 10:54
PROVIDERS: ADMIT Internal Medicine; ATTEND Internal Medicine
DX: E10.628 Type 1 diabetes mellitus with other skin complications (principal); I50.23 Acute on chronic systolic (congestive) heart failure; L03.116 Cellulitis of left lower limb; I42.9 Cardiomyopathy, unspecified; I47.2 Ventricular tachycardia; M86.9 Osteomyelitis, unspecified; L03.032 Cellulitis of left toe; I95.89 Other hypotension; G47.33 Obstructive sleep apnea (adult) (pediatric); I11.0 Hypertensive heart disease with heart failure; J84.10 Pulmonary fibrosis, unspecified; I25.10 Atherosclerotic heart disease of native coronary artery without angina pectoris; E10.42 Type 1 diabetes mellitus with diabetic polyneuropathy; I35.0 Nonrheumatic aortic (valve) stenosis; K21.9 Gastro-esophageal reflux disease without esophagitis; Z79.4 Long term (current) use of insulin; Z79.899 Other long term (current) drug therapy; Z95.2 Presence of prosthetic heart valve; Z95.810 Presence of automatic (implantable) cardiac defibrillator; Z88.8 Allergy status to other drugs, medicaments and biological substances; Z82.49 Family history of ischemic heart disease and other diseases of the circulatory system; Z83.79 Family history of other diseases of the digestive system; Z87.891 Personal history of nicotine dependence
CPT/HCPCS: 36415; 80048; 80053; 83605; 85025; 96365; 99283; A9270-GY; G0378; J1644; J2543; J3370

== ENCOUNTER 2018-02-04 08:14 | Emergency (ER) | payer MEDICARE ==
--- OUTSIDE RECORDS SUMMARY | 2018-02-04 08:23 | XMS REPORT ---
:1940 External Reference #:[id number] Author Organization [facility] Address [address] [place] [address] [place] [address] Phone [phone] Care Team Providers Name Role Phone Barry Snowden MD Care Team Information Oracle Adf Consultant Unavailable Liana Loza MD Primary Care Physician Unavailable Payers Type Date Identification Numbers Payment Provider Subscriber Medicare Primary Policy Number: [id number] Medicare Alan Hollis PayID: [id number] [address] [place] [address] [facility] Part B Policy Number: [id number] [facility] Alan Hollis PayID: [id number] [address] [place] [address] Problems Date Description Provider Status Onset: 01/17/2013 Primary cardiomyopathy Steven Frye M.D. Active Onset: 01/17/2013 Paroxysmal ventricular tachycardia Steven Frye M.D. Active Onset: 01/17/2013 Chronic ischemic heart disease Steven Frye M.D. 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 Active Onset: 09/18/2016 Syncope and collapse Ron Messer M.D. Active Onset: 09/24/2017 Type 1 diabetes mellitus MIRNA Guzman Active Onset: 09/24/2017 Cellulitis of left lower limb MIRNA Guzman Active Onset: 09/25/2017 Acute on chronic systolic heart Fabiola Alarcon NP Active failure Onset: 09/25/2017 Gastroesophageal reflux disease Fabiola Alarcon NP Active Onset: 09/25/2017 Type 2 diabetes mellitus with Fabiola Alarcon NP Active diabetic neuropathy, unsp Family History Date Family Member(s) Problem(s) Comments Father Stroke Father due to Stroke () Mother Heart Disease Mother due to [place] () Siblings 1 Brother w/celiac disease Social [...] M.DDesmond started taking recent since discharge 06/26/17) Humalog 10/16/ Active Solution 100Unit/M insulin Steven Cao 2014 Cartridge L pump Meek Frye Gabapentin / Active Capsules 100mg take 1 by Unknown 0000 mouth daily Am ( taken since 06/26/17 [facility]) Ferrousul / Active Tablets 325(65Fe) 1 tablet po Unknown 0000 mg tid ( taken since 06/26/17 [facility]) Colace / Active Capsules 100mg 1 tab by Unknown 0000 mouth two times a day as needed Trazodone HCL / Active Tablets 50mg 1 tablet at Unknown 0000 bedtime ( taken since 06/26/17 [facility]) Melatonin ER / Active Tablets ER 3mg 1 tablet at Unknown 0000 night 1 to 2 hours before bedtime as needed ( taken since 06/26/17 [facility]) Tylenol / Active Capsules 325mg 2 tablets Unknown 0000 every 4 hours as needed for pain ( taken since 06/26/17 [facility] ) Vancomycin HCL / Active Solution 1gm Via central Unknown 0000 Rec venous catheter every 48 hours Coreg 03/15/ Hx Tablets 3.125mg 180ta 1 by mouth Steven Cao 2015 - bs bid(on Brand, 01/15/ [facility]) M.DDesmond 2017 Furosemide 02/27/ Hx Tablets 20mg 60tab 2 tabs per Steven Cao 2015 - day , 05/12/ .D. 2016 Amoxicillin 08/02/ Hx Capsules 500mg 8caps 4 tablets 1 Steven Cao 2015 - hour before , 01/15/ dental work M.D. 2017 Magnesium 07/15/ Hx Tablets 200mg 1 by mouth Unknown Citrate 2015 - once a day 08/19/ [facility] 2017 Amiodarone HCL 01/07/ Hx Tablets 200mg 45tab 1/2 tab by Steven Cao 2012 - s mouth every Brand, day M.DDesmond 2015 Carvedilol 11/05/ Hx Tablets 6.25mg 180ta 1 by mouth Steven Cao 2012 - bs twice a day Brand, 04/02/ M.D. 2016 Pradaxa 09/30/ Hx Capsules 150mg 180ca 1 cap by Steven Cao 2012 - ps mouth twice Brand, 01/28/ a day M.DDesmond 2013 Lisinopril 05/14/ Hx Tablets 5mg 90tab 1 tab by Steven Cao 2012 - s mouth every Brand, day M.DDesmond 2017 Lipitor 12/21/ Hx Tablets 40mg 90tab 1 tab by Steven Cao 2011 - mouth every Brand, 01/15/ day(on 2017 hold) Klor-Con M20 00/00/ Hx Tablets ER 20Meq 90tab 1 by mouth Steven D. 0000 - s every Brand, 01/15/ day(on 2017 hold) Aspirin 00/00/ Hx Tablets DR 81mg 30tab 1 po qd Unknown 0000 - s dinner (on hold) 2017 Co Q-10 With 00/00/ Hx 1 po qd Unknown Red Rice Yeast 0000 - dinner(on ) 2017 Flax Seed 00/00/ Hx Capsules 1200mg 1 po qd Unknown 0000 - dinner (on ) 2017 Centrum Silver 00/00/ Hx Tablets 30tab 1 po qd(on Unknown 0000 - s hold) 2017 B-100 Complex 00/00/ Hx Tablets 1 po qd Unknown 0000 - dinner (on ) 2017 Humalog Kwikpen 00/00/ Hx Solution 100Unit/M 6unit sliding Unknown 0000 - L s scale 2014 Levemir Flexpen 00/00/ Hx Solution 100Unit/M 30uni 12 units in Unknown 0000 - L ts am 16 units 10/15/ in evening 2014 Novolog /00/ Hx as directed Unknown 0000 - 2015 Carvedilol 00/00/ Hx Tablets 3.125mg 180ta 1 by mouth Steven DDesmond 0000 - bs twice a day Brand, (pt is no M.D2015 longer taking) Clopidogrel 00/00/ Hx Tablets 75mg 1 by mouth Unknown Bisulfate 0000 - every day 2015 Pantoprazole 00/00/ Hx Tablets DR 40mg 1 by mouth Unknown Sodium 0000 - every day 06/17/ for 30 days 2015 Warfarin Sodium 00/00/ Hx Tablets 2.5mg 2.5mg 4X [place] 0000 - week and , 08/19/ 5mg Liana 2017 (2-2.5mg) MD Donnie 3x a week (monitored Via Coumadin lab [place]) Polyethylene 00/00/ Hx Powder 3350NF 1 scoop in [place] Glycol 3350 0000 - 8 oz water , 05/15/ once daily Liana 2016 MD Donnie Enoxaparin 00/00/ Hx Solution 100mg/ml 1 injection Unknown Sodium 0000 - every 12 05/10/ hours ( 2017 started 05/03/16) Hydrocodone-Romeo 00/ Hx Tablets 5-325mg [place] taminophen 0000 - , 05/10/ Liana 2016 MD Donnie Dutasteride 00/00/ Hx Capsules 0.5mg 1 cap po Unknown 0000 - daily 2016 Tamsulosin HCL 00/ Hx Capsules 0.4mg 1 cap po Unknown 0000 - daily 2017 Docusate Sodium 00/ Hx 1 po bid, Unknown 0000 - not sure 05/10/ dose 2017 Acetaminophen 00/ Hx Tablets 325mg 1-2 tabs 3x Unknown 0000 - a day as 2016 Cephalexin 00/ Hx Capsules 500mg 1 by mouth Unknown 0000 - three times 09/11/ a day for 7 2016 days Ursodiol 00/ Hx Tablets 500mg Take One Unknown 0000 - Tablet By 08/19/ Mouth Twice 2017 A Day Lisinopril / Hx Tablets 2.5mg 1 by mouth Unknown 0000 - every day Am ( taken 2017 since 06/26/[address] [facility] ) Protonix 00/ Hx Tablets DR 40mg 1 by mouth Unknown 0000 - every day Am ( Taken 2017 since 06/26/17 [facility]) Medications Administered in Office Medication Date Status Form Strength Qnty SIG Indications Ordering Provider Inj, Administered Injection Steven D. Regadenoson, 015 Meek Frye 0.1 MG Technetium TC Administered Injection Steven D. 99M 015 Meek Frye Tetrofosmin, Per Unit Dose Up To 40 Millicuries Vital Signs Date Vital Result Comment 01/16/2018 Height 72 inches 6'0" Weight 177.50 lb Respiratory Rate 16 /min O2 % BldC Oximetry 92 % On Ra BMI (Body Mass Index) 24.1 kg/m2 08/29/2017 Height 72 inches 6'0" Weight 185.00 lb with 6 lbs Lvad controller ( w/o clothes 174lbs) Heart Rate 83 /min BP Systolic Sitting 72 mmHg heard by dokoffi Breaux O2 % BldC Oximetry 97 % at [...] Non- 59.0 >60 Egfr 75.9 >60 1 Laboratory test finding 03/01/2016 B-Type Natriuretic 1420 pg/mL High 2 Peptide BNP Basic Metabolic Panel 03/01/2016 Sodium 136 mmol/L 133-145 Potassium 4.5 mmol/L 3.5-5.0 Chloride 100 mmol/L Low 101-111 Co2 Carbon Dioxide 31 mmol/L 22-32 Anion Gap 5 mmol/L 2-11 Glucose 98 mg/dL 70-100 Blood Urea Nitrogen 24 mg/dL 6-24 Creatinine 1.10 mg/dL 0.67-1.17 BUN/Creatinine Ratio 21.8 High 8-20 Calcium 8.9 mg/dL 8.6-10.3 Egfr Non- 65.3 >60 Egfr 83.9 >60 3 CBC Auto Diff 03/01/2016 White Blood Count [...] 0-2 Nucleated Red Blood Cells % 0.1 Laboratory test finding 07/30/2015 PSA Screening 3.804 ng/mL 0-4.000 4 CBC No Diff 07/30/2015 White Blood Count 7.1 10^3/uL 3.5-10.8 Red Blood Count 4.75 10^6/uL 4.0-5.4 Hemoglobin 14.6 g/dL 14.0-18.0 Hematocrit 45 % 42-52 Mean Corpuscular Volume 95 fL High 80-94 Mean Corpuscular Hemoglobin 31 pg 27-31 Mean Corpuscular HGB Conc 32 g/dL 31-36 Red Cell Distribution Width 15 % 10.5-15 Platelet Count 182 10^3/uL 150-450 Mean Platelet Volume 9 um3 7.4-10.4 Comp Metabolic Panel 07/30/2015 Sodium 133 mmol/L [...] Non- 60.3 >60 Egfr 77.6 >60 5 Anca Panel For Vasculitis 07/19/2015 Myeloperoxidase AB <0.2 U 6 Proteinase 3 AB <0.2 U 7 Scleroderma AB (SCL70) 07/19/2015 Scleroderma Ab <0.2 U 8 Laboratory test finding 07/19/2015 Anti Ssa/Ro 0.2 U 9 Anti SSB LA <0.2 U 10 Rheumatoid Factor <15 IU/mL <15 11 CBC Auto Diff 04/09/2015 White Blood Count [...] 0-2 Nucleated Red Blood Cells % 0.1 Inr/Protime 04/09/2015 Inr 1.32 High 0.89-1.11 Basic Metabolic Panel 04/09/2015 Sodium 133 mmol/L 133-145 Potassium 4.8 mmol/L 3.5-5.0 Chloride 98 mmol/L Low 101-111 Co2 Carbon Dioxide 31 mmol/L 22-32 Anion Gap 4 mmol/L 2-11 Glucose 224 mg/dL High 70-100 Blood Urea Nitrogen 22 mg/dL 6-24 Creatinine 1.17 mg/dL 0.67-1.17 BUN/Creatinine Ratio 18.8 8-20 Calcium 9.2 mg/dL 8.6-10.3 Egfr Non- 60.9 >60 Egfr 78.4 >60 12 Pre Cath Panel 04/09/2015 Partial Thrombo Time PTT 34.7 seconds 26.0- 36.3 Thyroid Panel 11/25/2014 Free T4 (Free Thyroxine) 1.02 ng/mL 0.61-1.12 Thyroxine 5.84 ?g/dL Low 6.09-12.23 TSH (Thyroid Stim Horm) 2.63 ?IU/mL 0.34-5.60 Comp Metabolic Panel 10/17/2014 Sodium 138 mmol/L [...] mg/dL 16 LDL Cholesterol 61 mg/dL 17 Liver Function Panel 10/17/2014 Direct Bilirubin 0.20 mg/dL High 0.03- 0.18 Indirect Bilirubin 0.5 mg/dL 0.3-1.0 Urine Microalbumin Random 10/17/2014 Ur Microalbumin (mg/L) 231.0 mg/L Urine Creatinine 151.26 mg/dL Urine Microalbumin/Creatinine 152.7 ug/mg High <31 CBC No Diff 04/30/2014 White Blood Count [...] 2.5-3.9 Laboratory test finding 04/30/2014 TSH (Thyroid Stimulating 0.16 IU/mL Low 0.34-5.60 Horm) Basic Metabolic Panel 08/26/2013 Sodium 136 mmol/L 133-145 Potassium 4.9 mmol/L 3.7-5.6 Chloride 102 mmol/L 101-111 Co2 Carbon Dioxide 30 mmol/L 22-32 Anion Gap 4 mmol/L 2-11 Glucose 214 mg/dL High 70-100 Blood Urea Nitrogen 20 mg/dL 6-24 Creatinine 1.23 mg/dL High 0.67-1.17 BUN/Creatinine Ratio 16.3 8-20 Calcium 9.5 mg/dL 8.6-10.3 Egfr Non- 57.8 >60 Egfr 74.4 >60 19 Laboratory test finding 08/26/2013 LDL Cholesterol Direct 53 mg/dL 20 Alt 19 U/L 7-52 Urine Microalbumin Random 12/03/2012 Ur Microalbumin (mg/L) 34.0 mg/L 21 Urine Creatinine 73.3 mg/dL Urine Microalbumin/Creatinine 46.4 High Less Than 31 Liver Function Panel 12/03/2012 Direct Bilirubin 0.2 mg/dL 0.1-0.5 Indirect Bilirubin 0.6 mg/dL 0.3-1.0 Lipid Profile (Trig/Chol/HDL) 12/03/2012 Triglycerides 63 mg/dL 40-200 Cholesterol 150 mg/dL Less than 200 HDL Cholesterol 75 mg/dL High 40-60 22 Cholesterol/HDL Ratio 2.0 Average 1-4.44 LDL Cholesterol 62.4 Less Than 100 23 Comp Metabolic Panel 12/03/2012 Sodium 135 mmol/L [...] Egfr Non- 66.0 >60 Egfr 84.9 >60 24 Laboratory test finding 07/23/2012 Free T4 1.32 [...] 5 Kidney failure <15 (or dialysis) 2 >100 to <200 pg/mL: likely compensated congestive heart failure (CHF) 200 to 400 pg/mL: likely moderate CHF >400 pg/mL: likely moderate to severe CHF 3 Because ethnic data is not always readily [...] 15-29 5 Kidney failure <15 (or dialysis) 4 Serum levels of PSA measured using the [employer] DXI Hybritech immunoassay should not be interpreted [...] REFERENCE VALUE <0.4 (Negative) Test Performed by: [place] [address] Dietary Clerk: Brandon Trujillo II, M.D., Ph.D. 8 REFERENCE VALUE <1.0 (Negative) Test Performed by: [place] [address] Dietary Clerk: Brandon Trujillo II, M.D., Ph.D. 9 REFERENCE VALUE <1.0 (Negative) Test Performed by: [place] [address] Dietary Clerk: Brandon Trujillo II, M.D., Ph.D. 10 REFERENCE VALUE <1.0 (Negative) Test Performed by: [place] [address] Dietary Clerk: Brandon Trujillo II, M.D., Ph.D. 11 Test Performed by: [place] [address] Dietary Clerk: Brandon Trujillo II, M.D., Ph.D. 12 Because [...] levels of PSA measured using the [employer] DXI Hybritech immunoassay should not be interpreted as absolute evidence of the presence or absence of disease. The PSA value should be used in conjunction with other pertinent clinical diagnostic procedures. The values obtained with different assay methods or kits cannot be used interchangeably. 19 Because ethnic data is not always readily [...] 15-29 5 Kidney failure <15 (or dialysis) 20 Desirable <100 Near Optimal 100-129 Borderline high 130-159 High 160-189 Very High >189 21 Microalbuminuria in a random sample is defined as: Microalbumin/Creatinine ratio of 30-299 ug/mg. 22 HDL Interpretation: Undesirable: High Risk: Less than 40 mg/dL Desirable: Low Risk: Greater than 60 mg/dL 23 LDL Interpretation: Low Risk Optimal Level: LDL Less than 100 mg/dL Near or Above Optimal: LDL 100-129 mg/dL Borderline High Risk: LDL 130-159 mg/dL High Risk: LDL 160-189 mg/dL Very High Risk: LDL Greater than 189 mg/dL 24 Because ethnic data is not always readily [...] 15-29 5 Kidney failure <15 (or dialysis) 25 Because ethnic data is not always [...] Procedures Date CPT Code Description Status 08/29/2017 75962 EKG Tracing & Interpretation Completed 08/24/2017 31310 Interrogation Implant Cardiovasc Monitor System Incl Completed Analysis Int 08/24/2017 06819 Interrogation Implant Cardiovasc Monitor System Incl Completed Analysis Int 08/24/2017 81008 Icd Eval With Iterative Adjustmt Multiple Lead System Completed 08/24/2017 26950 Icd Eval With Iterative Adjustmt Multiple Lead System Completed 01/24/2017 Colonoscopy Completed 11/24/2016 30699 Interrogation Implant Cardiovasc Monitor System Incl Completed Analysis Int 11/24/2016 49622 Interrogation Device Eval In Person W/DR Completed Analysis,Single,Dual,Mul 10/23/2016 69224 Pulmonary Function><Bronchodil Completed 10/23/2016 25748 Diffusing Capacity Completed 10/23/2016 26332 Pulmonary Stress Test Simple Completed 10/23/2016 41376 Plethysmography Determination Lung Volumes & Per Airway Completed Resist 10/10/2016 96856 ECHO Transthoracic, Real-Time 2D With Doppler And Color Completed Flow 10/04/2016 43269 Interrogation Implant Cardiovasc Monitor System Incl Completed Analysis Int 10/04/2016 03078 Icd Eval With Iterative Adjustmt Multiple Lead System Completed 08/25/2016 64018 Interrogation Implant Cardiovasc Monitor System Incl Completed Analysis Int 08/25/2016 04339 Icd Eval With Inerative Adjustmt Dual Lead System Completed 06/21/2016 57939 Icd Eval With Inerative Adjustmt Dual Lead System Completed 06/21/2016 88731 Echocardiogram, Limited Study Completed 06/21/2016 89949 Echocardiogram, Limited Study Completed 06/16/2016 56630 EKG Tracing & Interpretation Completed 06/15/2016 98683 EKG Tracing & Interpretation Completed 06/13/2016 83988 Cardioversion Completed 06/07/2016 53669 Interrogation Implant Cardiovasc Monitor System Incl Completed Analysis Int 06/07/2016 53365 Icd Check Single,Dual Or Multiple In Person W/DR Incl Completed Heart Rhyth 06/05/2016 29823 ECHO Transthoracic, Real-Time 2D With Doppler And Color Completed Flow 05/05/2016 45617 EKG Tracing & Interpretation Completed 04/14/2016 30324 EKG Tracing & Interpretation Completed 03/27/2016 60322 Interrogation Implant Cardiovasc Monitor System Incl Completed Analysis Int 03/27/2016 15292 Icd Eval With Inerative Adjustmt Dual Lead System Completed 03/22/2016 88805 EKG Tracing & Interpretation Completed 03/06/2016 50359 ECHO Transthoracic, Real-Time 2D With Doppler And Color Completed Flow 03/03/2016 54921 EKG Tracing & Interpretation Completed 03/02/2016 56287 Icd Check Single,Dual Or Multiple In Person W/DR Incl Completed Heart Rhyth 01/18/2016 41163 Icd Eval With Inerative Adjustmt Dual Lead System Completed 01/18/2016 53651 Interrogation Implant Cardiovasc Monitor System Incl Completed Analysis Int 10/06/2015 99899 Icd Eval With Inerative Adjustmt Dual Lead System Completed 10/01/2015 91448 ECHO Transthoracic, Real-Time 2D With Doppler And Color Completed Flow 08/05/2015 86523 Polysomnography Sleep Staging 4+ Parameters Completed 07/19/2015 52028 Pulmonary Stress Test Simple Completed 07/07/2015 65814 Plethysmography Determination Lung Volumes & Per Airway Completed Resist 07/07/2015 98013 Spirometry Incl Graphic Record Completed 06/29/2015 84489 ECHO Transthoracic, Real-Time 2D With Doppler And Color Completed Flow 06/09/2015 72184 Interrogation Implant Cardiovasc Monitor System Incl Completed Analysis Int 06/09/2015 65946 Icd Eval With Inerative Adjustmt Dual Lead System Completed 06/01/2015 18452 EKG Tracing & Interpretation Completed 04/13/2015 40800 Catheter Placement In Coronary Artery,W/RT & LT Cath Completed Bustillo Bypass 04/08/2015 35400 EKG Tracing & Interpretation Completed 03/25/2015 82987 ECHO Transthoracic, Real-Time 2D With Doppler And Color Completed Flow 03/11/2015 60607 Stress Test Completed 03/11/2015 03149 Myocardial Perfusion Imaging Tomographic (Spect) Completed Multiple Studies 02/01/2015 60599 Interrogation Implant Cardiovasc Monitor System Incl Completed Analysis Int 02/01/2015 37496 Icd Eval With Inerative Adjustmt Dual Lead System Completed 10/29/2014 12676 ECHO Transthoracic, Real-Time 2D With Doppler And Color Completed Flow 09/14/2014 96604 Interrogation Implant Cardiovasc Monitor System Incl Completed Analysis Int 09/14/2014 59007 Interrogation Implant Cardiovasc Monitor System Incl Completed Analysis Int 09/14/2014 52832 Icd Check Single,Dual Or Multiple In Person W/DR Incl Completed Heart Rhyth 07/03/2014 51224 Icd Eval With Inerative Adjustmt Dual Lead System Completed 03/24/2014 93063 Interrogation Implant Cardiovasc Monitor System Incl Completed Analysis Int 03/24/2014 54143 Icd Check Single,Dual Or Multiple In Person W/DR Incl Completed Heart Rhyth 03/24/2014 62967 Icd Check Single,Dual Or Multiple In Person W/DR Incl Completed Heart Rhyth 01/30/2014 58006 EKG Tracing & Interpretation Completed 09/03/2013 18346 Interrogation Implant Cardiovasc Monitor System Incl Completed Analysis Int 09/03/2013 18827 Icd Eval With Inerative Adjustmt Dual Lead System Completed 05/06/2013 79240 Interrogation Implant Cardiovasc Monitor System Incl Completed Analysis Int 05/06/2013 74793 Icd Check Single,Dual Or Multiple In Person W/DR Incl Completed Heart Rhyth 01/02/2013 14090 Interrogation Implant Cardiovasc Monitor System Incl Completed Analysis Int 01/02/2013 18283 Icd Check Single,Dual Or Multiple In Person W/DR Incl Completed Heart Rhyth 09/12/2012 37749 Interrogation Implant Cardiovasc Monitor System Incl Completed Analysis Int 09/12/2012 77593 Icd Eval With Inerative Adjustmt Dual Lead System Completed 05/15/2012 62113 Interrogation Implant Cardiovasc Monitor System Incl Completed Analysis Int 05/15/2012 72218 Icd Eval With Inerative Adjustmt Dual Lead System Completed Encounters Type Date Location Provider CPT E/M Dx Office Visit 09/25/2017 [facility] Enterpriseananth Cao 89784 E10.621 1:39p Infectious Diseases Meek Ndiaye L97.529 L03.116 E10.51 Office Visit 09/25/2017 12:17p [facility] Fabiola [facility] 61619 L03.116 Assoc, Hospitalists ESTEPHANIA Alarcon I42.9 I50.23 K21.9 E11.40 Office Visit 09/24/2017 12:16p [facility] MIRNA Guzman 10518 E10.9 Assoc,pc Hospitalists L03.116 Office Visit 08/29/2017 9:45a [facility] Steven Frye, 98066 Z95.810 Work Force Advisor M.DDesmond I47.2 I25.5 Z95.2 Office Visit 11/24/2016 2:45p [facility] Steven Frye, 12350 Z95.810 Carson M.DDesmond I25.5 I47.2 Z95.2 Office Visit 11/21/2016 9:45a [facility] [place] [address] J84.10 Services Of Work Force Advisor G47.33 Office Visit 10/17/2016 1:30p [facility] [place] [address] G47.33 Services Of Work Force Advisor J84.10 Office Visit 10/11/2016 12:00p [facility] Steven Frye, 15727 I25.5 Carson M.DDesmond Z95.810 Z95.2 I50.22 Office Visit 10/03/2016 8:30a [facility] [place] [address] J84.10 Services Of Work Force Advisor G47.33 Office Visit 09/18/2016 3:00p ENT Services Of Ron Messer, 69618 R42 C.M.ADesmond AT Dougie Eden R55 Office Visit 07/12/2016 11:15a [facility] Mary Lou Frye, 71454 I25.5 Work Force Advisor M.D. Z95.2 Z95.810 I48.1 I50.22 Office Visit 06/16/2016 1:30p [facility] Mary Lou Frye, 40235 Z95.810 Work Force Advisor M.D. I25.5 Z95.2 I48.1 Office Visit 06/07/2016 10:45a [facility] Steven Frye, 23261 I25.5 Work Force Advisor M.D. Z95.810 I50.22 R06.02 Z95.2 I48.1 Office Visit 05/16/2016 10:30a [facility] MIRNA Jacome 92019 I25.5 I50.22 R60.0 R06.02 Office Visit 05/12/2016 3:00p [facility] MIRNA Jacome 36528 I25.5 Z95.810 Z95.2 I50.43 Office Visit 05/05/2016 1:15p [facility] Steven HollandDesmond Uday, 24265 I25.5 Work Force Advisor M.D. Z95.810 R06.02 Z95.2 I50.43 Office Visit 04/14/2016 12:00p [facility] Steven HollandDesmond Frye, 57246 I25.5 Work Force Advisor M.D. Z95.810 R60.0 R06.02 Office Visit 03/31/2016 11:45a [facility] [place] [address] J84.10 Services Of [facility] G47.33 Office Visit 03/22/2016 8:15a [facility] Steven HollandDesmond Uday, 97355 I25.5 Work Force Advisor M.D. Z95.810 Z95.2 Office Visit 03/09/2016 10:32a [facility] Bethany Kearney, 95604 I50.43 Assoc,pc Hospitalists M.D. I25.5 E10.319 I47.2 Office Visit 03/08/2016 10:32a [facility] [place] [address] I50.43 Hospitalists I25.5 E10.319 I47.2 Office Visit 03/03/2016 1:00p [facility] MIRNA Jacome 12635 I25.5 Z95.810 R60.9 R06.02 Office Visit 11/05/2015 11:45a [facility] [place] [address] G47.33 Services Of [facility] J84.10 R09.02 Office Visit 10/08/2015 9:30a [facility] Of Steven Frye, 82115 I25.5 [facility] M.D. Z95.810 Z95.2 I35.0 I47.2 Office Visit 08/31/2015 10:00a [facility] [place] [address] G47.33 Services Of [facility] J98.4 Office Visit 07/19/2015 8:45a [facility] [place] [address] J98.4 Services Of [facility] G47.33 Office Visit 07/02/2015 9:30a [facility] Of Steven Frye, 48975 I25.5 [facility] M.D. I25.810 Z95.2 I44.7 Office Visit 06/01/2015 1:30p [facility] Of Steven Frye, 72440 I25.5 [facility] AT [facility] M.D. I25.810 I35.0 Office Visit 04/20/2015 1:15p [facility] Of Steven Frye, 93924 I25.810 [facility] AT [facility] M.D. I25.5 I35.0 Office Visit 04/08/2015 10:45a [facility] Of Steven Frye, 55921 I25.5 [facility] M.D. I25.810 I47.2 I35.0 R94.31 Office Visit 03/05/2015 3:45p [facility] Of Steven Frye, 62521 I25.10 [facility] M.D. I25.5 R06.02 Office Visit 10/16/2014 10:45a [facility] Of Steven Frye, 92429 427.1 [facility] M.D. 414.9 425.4 785.2 Office Visit 01/30/2014 2:30p [facility] Of Steven Frye, 00901 425.4 [facility] M.D. 427.1 414.9 414.02 Office Visit 01/17/2013 9:00a [facility] Of Steven Frye, 60980 425.4 [facility] M.D. 427.1 414.9 414.02 Office Visit 05/17/2012 8:00a [facility] Of Steven Frye, 16383 425.4 Carson Eden 414.9 427.31 Plan of Care 01/16/2018 - Helen Segura MDJ84.10 Pulmonary fibrosis, unspecifiedFollow up: 1 yearG47.33 Obstructive sleep apnea (adult) (pediatric)
--- NOTE | 2018-02-04 08:47 | ED ---
Complex/Multi-Sys Presentation - HPI Summary HPI Summary: This pt is a 78 y/o male presenting to [facility] sent by Irina Heath NP from [facility] for abnormal labs. states pt was seen yesterday at [facility] and had blood work done that showed elevated potassium level. Per , pt is supposed to get treated in the ED today and then transferred to their facility for further management. reports the pt began to have weakness about 3 days ago. Additionally notes some SOB, not feeling well , and right toe pain. Denies fever, chills, chest pain, abd pain. Pt has vancomycin transfusions every other day for right toe osteomyelitis. Per , pt is scheduled to have right toe amputated in 2 days. PMHx includes CAD, LVAD, ICD, renal insufficiency. - History Of Current Complaint Chief Complaint: EDGeneral Time Seen by Provider: 02/04/18 08:16 Hx Obtained From: Patient, Family/Picker / Packer - Onset/Duration: Lasting Days - 3, Still Present Timing: Days Severity Currently: Moderate Location: Pain At: - right toe Aggravating Factor(s): nothing Alleviating Factor(s): nothing Associated Signs And Symptoms: Positive: Weakness, SOB, Other - POS: right toe pain. Negative: Chest Pain, Abdominal Pain, Fever - Allergies/Home Medications Allergies/Adverse Reactions: Allergies Allergy/AdvReac Type Severity Reaction Status Date / Time amiodarone Allergy Unknown Verified 09/24/17 12:37 Reaction Details PMH/Surg Hx/FS Hx/Imm Hx Endocrine/Hematology History: Reports: Hx Anticoagulant Therapy, Hx Diabetes Denies: Hx Thyroid Disease Cardiovascular History: Reports: Hx Coronary Artery Disease, Hx Pacemaker/ICD - PACEMAKER, Hx Peripheral Vascular Disease - chronic, Other Cardiovascular Problems/Disorders - ACS, 2010; Vtach; CABG Denies: Hx Hypertension Respiratory History: Denies: Hx Asthma, Hx Chronic Obstructive Pulmonary Disease (COPD) GI History: Denies: Hx Ulcer Sensory History: Reports: Hx Contacts or Glasses Denies: Hx Hearing Aid Opthamlomology History: Reports: Hx Contacts or Glasses - Cancer History Cancer Type, 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 cardiatic=bypass. =5 yrs ago. aortic valve placement=may 2015. ICD. [employer] Hx Anesthesia Reactions: No - Immunization History Date of Tetanus Vaccine: up to date Date of Influenza Vaccine: 2016 Infectious Disease History: No Infectious Disease History: Reports: Hx Shingles Denies: Hx Hepatitis, Hx Human Immunodeficiency Virus (HIV), Traveled Outside the [place] in Last 30 Days - Family History Known Family History: Positive: Cardiac Disease, Hypertension, Diabetes Family History: FHx of CVA - Father - Social History Alcohol Use: Daily Alcohol Amount: 1-2 GLASS WINE Substance Use Type: Reports: None Smoking Status (MU): Former Smoker Review of Systems Constitutional: Other - not feeling well Negative: Fever, Chills Negative: Chest Pain Positive: Shortness Of Breath Negative: Abdominal Pain Musculoskeletal: Other - right toe pain Positive: Weakness All Other Systems Reviewed And Are Negative: Yes Physical Exam - Summary Physical Exam Summary: VITAL SIGNS: Reviewed. GENERAL: Patient is a well-developed and elderly male who is lying comfortable in the stretcher. Patient is not in any acute respiratory distress. HEAD AND FACE: No signs of trauma. No ecchymosis, hematomas or skull depressions. No sinus tenderness. EYES: PERRLA, EOMI x 2, No injected conjunctiva, no nystagmus. EARS: Hearing grossly intact. Ear canals and tympanic membranes are within normal limits. MOUTH: Oropharynx within normal limits. NECK: Supple, trachea is midline, no adenopathy, no JVD, no carotid bruit, no c- spine tenderness, neck with full ROM. CHEST: Symmetric, no tenderness at palpation. Pt has a scar in the center of the chest secondary to cardiothoracic surgery. LVAD device heart sounds. PICC line on the right side of the chest. ICD defibrillator on the left side of the chest. LUNGS: Clear to auscultation bilaterally. No wheezing or crackles. CVS: Regular rate and rhythm, S1 and S2 present, no murmurs or gallops appreciated. ABDOMEN: Soft, non-tender. Abdomen is slightly distended. No rebound, no guarding, and no masses palpated. Bowel sounds are normal. EXTREMITIES: LLE: Second toe is amputated on the left foot. RLE: The first right digit has necrotic tissue secondary to osteomyelitis. NEURO: Alert and oriented x 3. No acute neurological deficits. Speech is normal and follows commands. SKIN: Dry and warm. Brownish discoloration secondary to chronic peripheral vascular disease. Triage Information Reviewed: Yes Vital Signs On Initial Exam: Initial Vitals Temp Resp 97.7 F 20 02/04/18 08:17 02/04/18 08:17 Vital Signs Reviewed: Yes Diagnostics - Vital Signs Vital Signs Temp Resp 02/04/18 08:17 97.7 F 20 - Laboratory Result Diagrams: 02/04/18 08:56 02/04/18 08:56 Lab Statement: Any lab studies that have been ordered have been reviewed, and results considered in the medical decision making process. - Radiology Chest XR Radiology Interpretation Completed By: Radiologist Summary of Radiographic Findings: IMPRESSION: Pulmonary fibrosis and cardiomegaly as described without radiographic evidence for a superimposed acute cardiopulmonary process. Dr. Jessica has reviewed this report. - EKG 08:32 Cardiac Rate: NL - at 89 bpm Summary of EKG Findings: LVAD device rhythm at 89 bpm. Complex Multi-Symp Course/Dx Assessment/Plan: This pt is a 78 y/o male presenting to [facility] sent by Irina Heath NP from [facility] for abnormal labs. states pt was seen yesterday at [facility] and had blood work done that showed elevated potassium level. Per , pt is supposed to get treated in the ED today and then transferred to their facility for further management. reports the pt began to have weakness about 3 days ago. Additionally notes some SOB, not feeling well, and right toe pain. Denies fever, chills, chest pain, abd pain. Pt has vancomycin transfusions every other day for right toe osteomyelitis. Per , pt is scheduled to have right toe amputated in 2 days. 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 Blood work without any significant abnormality except for chronic normochromic normocytic anemia, sodium level is 127, potassium level of 6.6, BUN is 139 creatinine is 3.5 to, glucose 337, magnesium 3.4, troponins 0.12, BNP 377. Chest x-ray impression: Pulmonary fibrosis and cardiomegaly without radiographic evidence of superimposed acute cardiopulmonary process. In the ED course the patient was given dextrose, insulin, calcium gluconate, and Kayexalate. I discussed the case with Irina Heath, nurse practitioner for Cardiothoracic surgeon Dr. Tristin Jimenez and they recommended for the patient to be transferred to the facility for further workup and management. Patient was accepted for transfer. Diagnosis: Hyperkalemia. Acute on chronic renal failure. Increased Troponin. Chronic Anemia. LVAD. Patient is hemodynamically stable. - Diagnoses Provider Diagnoses: Hyperkalemia, Acute on chronic renal failure, Elevated troponin, LVAD (left ventricular assist device) present - Physician Notifications Discussed Care Of Patient With: Irina Heath - TALCER from [facility] Time Discussed With Above Provider: 10:03 Instructed by Provider To: Other - I discussed with Irina Heath NP from [facility] who reports to transfer the pt and pt will be admitted to Dr. Jimenez, cardiothoracic surgeon. Discharge - Sign-Out/Discharge Documenting (check all that apply): Patient Departure - Transfer pt to [facility] - Discharge Plan Condition: Stable Disposition: TRANS HIGHER LVL OF CARE FAC Referrals: Liana Loza MD [Primary Care Provider] - - Billing Disposition and Condition Condition: STABLE Disposition: Trans Higher Lvl of Care Fac - Attestation Statements Document Initiated by Goranibe: Yes Documenting Scribe: Danielle Russell Provider For Whom Zena is Documenting (Include Credential): Gadiel Jessica MD Scribe Attestation: Danielle Martino scribed for Gadiel Jessica MD on 02/04/18 at 1050. Scribe Documentation Reviewed: Yes Provider Attestation: The documentation as recorded by the Danielle shoemaker accurately reflects the service I personally performed and the decisions made by me, Gadiel Jessica MD
[2018-02-04 09:10] LABS: ABS Basophils 0 10^3/ul (0-0.2); ABS Eosinophils 0.1 10^3/ul (0-0.6); ABS Lymphocytes 0.6 10^3/ul (1.0-4.8); ABS Monocytes 0.5 10^3/ul (0-0.8); ABS Neutrophils 4.4 10^3/ul (1.5-7.7); ABS Nucleated RBC 0 10^3/ul; Eosinophil % 1.7 % (0-6); Hematocrit 22 % (42-52); Hemoglobin 7.4 g/dl (14.0-18.0); Mean Corpuscular HGB Conc 33 g/dl (31-36); Mean Corpuscular Hemoglobin 31 pg (27-31); Mean Corpuscular Volume 94 fL (80-94); Mean Platelet Volume 8.3 fL (7.4-10.4); Nucleated Red Blood Cells % 0; Platelet Count 145 10^3/ul (150-450); Red Blood Count 2.36 10^6/ul (4.00-5.40); Red Cell Distribution Width 16 % (10.5-15); White Blood Count 5.7 10^3/ul (3.5-10.8)
[2018-02-04 09:19] LABS: INR 1.4 (0.77-1.02)
[2018-02-04] MEDS ORDERED: Insulin REGULAR(*) 1 UNITS UNIT IV PUSH ONE (09:36)
[2018-02-04] MEDS ORDERED: Sodium Polystyrene ORAL.SOL* 15 GM/60 ML BTL PO ONE (09:36)
[2018-02-04] MEDS ORDERED: Calcium Gluconate INJ* 1 GM in NS 0.9% 50 ML* 50 ML IVPB ONE (09:36)
[2018-02-04] MEDS ORDERED: Dextrose 50% VIAL 50 ml IV PRN (09:36)
[2018-02-04] MEDS ORDERED: Dextrose 50% Syringe 50 ML* 25 GM/50 ML SYRINGE ONE (09:55)
[2018-02-04] MEDS ORDERED: Dextrose 50% Syringe 50 ML* 25 GM/50 ML SYRINGE IV PUSH PRN (10:02)
[2018-02-04 11:23] VITALS: BP 95/64
== END 2018-02-04 11:18 | disposition short-term general hospital (02) ==
LOC: ED 08:14
DX: E87.5 Hyperkalemia (principal); N17.9 Acute kidney failure, unspecified; E11.22 Type 2 diabetes mellitus with diabetic chronic kidney disease; N18.9 Chronic kidney disease, unspecified; Z79.01 Long term (current) use of anticoagulants; Z87.891 Personal history of nicotine dependence; Z95.828 Presence of other vascular implants and grafts
CPT/HCPCS: 36415; 71045; 80053; 82550; 82553; 83605; 83735; 83880; 84443; 84484; 85025; 85610; 85730; 93005; 99284; A9270-GY; J0610